=== PATIENT | male | born 1960 | race Caucasian/White ===

== ENCOUNTER 2021-03-13 12:49 | Inpatient (IN) ==
[2021-03-13] MEDS ORDERED: ALBUT/IPRATROP 3MG/0.5MG NEB 3 ML VIAL INH STA (13:39)
[2021-03-13] MEDS ORDERED: dexAMETHasone**PF** 10 MG/ML VIAL IV ONE (13:39)
[2021-03-13] MEDS ORDERED: SODIUM CHLORIDE 0.9% 1000ML 500 ML IV ONE (13:48)
--- NOTE | 2021-03-13 13:48 | Emergency Department Note ---
Impression & Plan Hypoxia, Pneumonia, COVID-19, SOB (shortness of breath) ED Provider Note NAME: SHON VALERA AGE: 60 SEX: M : 1960 ARRIVES VIA: Walk-In INFORMANT: [Patient] ED PROVIDER(S): [Surjit Navarro MD] CHIEF COMPLAINT: Shortness of breath HISTORY OF PRESENT ILLNESS: The patient is a 60-year-old male who is a Covid positive. He was diagnosed with Covid last week. He has had symptoms for about 10 days. The patient had a syncopal event last week and suffered a nonoperable C3 fracture. He is still in a [place] J collar. The patient states that for the last 3, maybe 4 days, he has been more short of breath, he is short of breath with exertion and lying flat. He has felt more weak and more tired. No chest pain, no vomiting. He does have COPD so he uses an inhaler from time to time. He tried it this morning but it did not really help. Upon my arrival in the room, the patient is on facemask O2 as his oxygen value was low in triage. REVIEW OF SYSTEMS: See HPI for pertinent positives and negatives. A total of ten systems were reviewed and were otherwise negative. PMHx/PSHx: See Below SOCIAL HISTORY: See Below. PHYSICAL EXAM: GENERAL: Patient is in no acute distress. HEENT: The patient has a small laceration which appears to be healing to the lateral aspect of the right eyebrow. There is contusion about the right eye. Mucous membranes moist. NECK: No stridor, [place] J collar in place. LUNGS: Clear to auscultation bilaterally when listening anteriorly, no wheeze, no rhonchi, breath sounds equal. Increased respiratory rate. HEART: Without murmurs gallops or rubs, regular rate and rhythm. ABDOMEN: Soft, nontender, bowel sounds positive, no hernias, no peritonitis. EXTREMITIES: No cyanosis or edema, full range of motion of all the joints without pain or difficulty, no signs for acute trauma. NEUROLOGIC: Oriented x 3, no acute motor or sensory deficits, no focal weakness. SKIN: No rash, no jaundice, no diaphoresis. DIFFERENTIAL DIAGNOSIS: Reactive airway disease, pneumonia, pneumothorax, COVID-19, dehydration, COPD, CHF, infection, cardiac ischemia, pulmonary embolism, bronchitis, musculoskelet al, gastrointestinal, as well as other pathologies. EMERGENCY DEPARTMENT COURSE/PROCEDURES: ECG: Indication was shortness of breath. The ECG shows a sinus rhythm with a PVC. The rate is 96. There is no ST elevation. The QTc is 437. Continuous Cardiac Monitoring: An order was placed for continuous cardiac monitoring. The monitor shows a rate of 100 with normal sinus rhythm. Critical Care Note: I have personally spent 43 minutes of critical care time in the direct management of this patient. This includes bedside care, interpretation of diagnostic studies, and testing, discussion with consultants, patient, and family members, and other required patient management activities. This 43 minutes is in excess of all separately billable procedures. MEDICAL DECISION MAKING: There is no leukocytosis or concerning anemia. There is a normal platelet count. No worrisome coagulopathy. Renal panel testing did not show renal failure. Sodium slightly low. Lactic acid level was not elevated making severe sepsis less likely. There were a few liver enzyme elevations however, the bilirubin was normal. ECG shows a sinus rhythm, no ischemic change. Cardiac enzyme testing x1 is not consistent with acute cardiac injury. Covid testing returned positive. Chest film shows a bilateral pneumonia likely a viral pneumonia. No pneumothorax. The patient presented hypoxic. He is Covid positive and has Covid pneumonia. He required O2 supplementation here to keep his oxygen saturation around 90%. The patient was given a 500 cc saline bolus. He was given IV Decadron and a DuoNeb. The patient is in need of a hospital stay. His Covid symptoms have worsened and he is now hypoxic. I did speak with the patient and onsite case manager. The on-call hospitalist was consulted. Past Med/Surg History Medical History Arthritis CAD (coronary artery disease) 2017-NSTEMI s/p IVONNE to distal left circumflex Diverticular disease GERD (gastroesophageal reflux disease) HTN (hypertension) Hyperlipidemia Morbid obesity with BMI of 40.0-44.9, adult NSTEMI (non-ST elevated myocardial infarction) 01/2017--follows with Dr. Lai--reason for Brilinta Pyloric stenosis Spinal stenosis Surgical History History of appendectomy History of cardiac cath 01/2017 @ [facility] with 1 stent placed History of carpal tunnel surgery of right wrist History of colonoscopy with polypectomy History of heart artery stent 01/2017 1 placed History of tonsillectomy History of wisdom tooth extraction Family History Other Heart disease No family history of adverse response to anesthesia Social History Smoking Status: Former smoker Tobacco Type: Cigarettes Cigarettes Per Day: 3-4 a day; Second Hand Exposure: No; Do You Dip or Chew Tobacco: No; Tobacco Cessation Education Requested by Patient: No Hx Alcohol Use: Yes Alcohol type: beer Hx Substance Use: No Preferred Language: Bulgarian Communication Ability: Effective [place] Required: No Beliefs That Will Affect Care: None Current Living Situation: Family Current Living Situation Comment: Lives with daughter Other Information That Helps Us Care for You: No Feels Safe at Home: Yes Safety Concerns: Feels Safe At This Time Assistive Devices: Glasses Allergies Allergies Allergy/AdvReac Type Severity Reaction Status Date / Time No Known Allergies Allergy Verified 03/13/21 14:27 Home Meds Home Medications Medication Instructions Recorded Confirmed omeprazole 20 mg capsule,delayed 20 mg PO QAM 01/30/18 03/13/21 release atorvastatin 40 mg tablet 40 mg PO QAM tab 12/14/18 03/13/21 ticagrelor 90 mg tablet (Brilinta) 90 mg PO BID 03/09/21 03/13/21 aspirin 81 mg chewable tablet 81 mg PO QAM 03/13/21 03/13/21 diclofenac sodium 75 mg 75 mg PO BID 03/13/21 03/13/21 tablet,delayed release Previous Rx's Medication Instructions Recorded acetaminophen 500 mg tablet 1,000 mg PO Q6H PRN #60 tab MDD 6 02/01/18 (Tylenol Extra Strength) pills a day nitroglycerin 0.4 mg sublingual 0.4 mg SUBLINGUAL Q5M #25 tab 02/01/18 tablet (Nitrostat) metoprolol tartrate 25 mg tablet 25 mg PO BID #180 tab 02/15/19 Results & Data (ED) Vital Signs Vital Signs - 24 hr 03/13/21 13:05 03/13/21 13:30 03/13/21 13:31 Temperature 36.4 C L Temperature Source Temporal Artery Scan Pulse Rate 99 H 100 H Pulse Rate [Apical] 95 H Pulse Rate from SpO2 Sensor 99 H Pulse Rhythm [Apical] Regular Respiratory Rate 20 22 34 H Respiratory Effort / Characteristics Non-Labored Spontaneous Non-Labored Respiratory Depth Normal Normal Respiratory Pattern Regular Regular Blood Pressure 98/60 L Blood Pressure [Right Arm] 112/73 Blood Pressure Mean 72 Blood Pressure Mean [Right Arm] 86 Blood Pressure Position Sitting Pulse Oximetry 92 92 89 L Oxygen Delivery Method Room Air Oxymask Oxygen Flow Rate 10 Sepsis Recent Fever Within 48 Hours No Sepsis New/Unexplained Change in Mental Status No Sepsis Action Taken by Nursing No Action Required 03/13/21 13:40 03/13/21 13:56 03/13/21 14:00 Temperature Temperature Source Pulse Rate 93 H Pulse Rate [Apical] Pulse Rate from SpO2 Sensor Pulse Rhythm [Apical] Respiratory Rate 19 24 Respiratory Effort / Characteristics Non-Labored Spontaneous Respiratory Depth Respiratory Pattern Blood Pressure Blood Pressure [Right Arm] Blood Pressure Mean Blood Pressure Mean [Right Arm] Blood Pressure Position Pulse Oximetry 93 92 Oxygen Delivery Method Oxymask Oxymask Oxygen Flow Rate 10 9 Sepsis Recent Fever Within 48 Hours Sepsis New/Unexplained Change in Mental Status Sepsis Action Taken by Nursing 03/13/21 14:30 03/13/21 15:00 03/13/21 15:30 Temperature Temperature Source Pulse Rate 88 90 Pulse Rate [Apical] Pulse Rate from SpO2 Sensor 89 90 82 Pulse Rhythm [Apical] Respiratory Rate 25 H 25 H 26 H Respiratory Effort / Characteristics Respiratory Depth Respiratory Pattern Blood Pressure 114/54 L 127/61 Blood Pressure [Right Arm] Blood Pressure Mean 74 83 Blood Pressure Mean [Right Arm] Blood Pressure Position Pulse Oximetry 97 88 L 89 L Oxygen Delivery Method Nasal Cannula Nasal Cannula Oxygen Flow Rate 5 5 Sepsis Recent Fever Within 48 Hours Sepsis New/Unexplained Change in Mental Status Sepsis Action Taken by [facility] Medications Current Medication List: was personally reviewed by me Laboratory Data Attestation: I reviewed the patient's lab results. Result diagrams: 03/13/21 13:00 03/13/21 13:00 Lab Results 03/13/21 03/13/21 03/13/21 Range/Units 13:00 13:00 13:00 WBC 6.53 (4.8-10.8) K/uL RBC 4.99 (4.7-6.1) M/uL Hgb 15.0 (14.0-18.0) g/dL Hct 42.6 (42-52) % MCV 85.4 (80-100) fL MCH 30.1 (25-34) pg MCHC 35.2 (32-36) g/dL RDW Std Deviation 45.1 (36.4-46.3) fL RDW Coeff of Sheron 14.4 (11.5-14.5) % Plt Count 137 (130-400) K/uL MPV 10.4 (7.4-10.4) fL Immature Gran % (Auto) 0.2 % Neut % (Auto) 80.8 % Lymph % (Auto) 10.0 % [place] % (Auto) 8.7 % Eos % (Auto) 0.0 % Baso % (Auto) 0.3 % Neut # (Auto) 5.28 (1.4-6.5) K/uL Lymph # (Auto) 0.65 L (1.2-3.4) K/uL [place] # (Auto) 0.57 (0.11-0.59) K/uL Eos # (Auto) 0.00 (0-0.5) K/uL Baso # (Auto) 0.02 (0-0.2) K/uL Immature Gran # (Auto) 0.01 (0.00-0.02) K/uL PT 10.2 (9.0-12.0) Seconds INR 1.0 (0.9-1.1) APTT 32.2 H (21.0-31.0) Seconds PTT Ratio 1.2 Sodium 133 L (136-145) mmol/L Potassium 3.7 (3.5-5.1) mmol/L Chloride 102 (98-107) mmol/L Carbon Dioxide 21 (21-32) mmol/L Anion Gap 10.0 (3-11) BUN 15 (7-18) mg/dl Creatinine 0.99 (0.6-1.4) mg/dl Est Cr Clr Drug Dosing 94.6 ml/min Est GFR ( Amer) 95.5 ml/min Est GFR (Non-Af Amer) 82.4 ml/min BUN/Creatinine Ratio 15.0 (10-20) Glucose 107 H (70-99) mg/dl Lactate (0.4-2.0) mmol/L Calcium 8.7 (8.5-10.1) mg/dl Magnesium 2.4 (1.8-2.4) mg/dl Total Bilirubin 0.5 (0.2-1) mg/dl AST 117 H (15-37) U/L ALT 53 (12-78) U/L Alkaline Phosphatase 126 H (45-117) U/L Troponin I < 0.015 (0-0.045) ng/ml C-Reactive Protein 11.60 H (0-0.29) mg/dl Total Protein 7.8 (6.4-8.2) gm/dl Albumin 2.8 L (3.4-5.0) gm/dl Globulin 5.0 H (2.5-4.0) gm/dl Albumin/Globulin Ratio 0.6 L (0.9-2) Procalcitonin (0-0.5) ng/ml COVID-19 Eval Order SARS-CoV-2 (PCR) (Negative) 03/13/21 03/13/21 03/13/21 Range/Units 13:00 13:00 13:00 WBC (4.8-10.8) K/uL RBC (4.7-6.1) M/uL Hgb (14.0-18.0) g/dL Hct (42-52) % MCV (80-100) fL MCH (25-34) pg MCHC (32-36) g/dL RDW Std Deviation (36.4-46.3) fL RDW Coeff of Sheron (11.5-14.5) % Plt Count (130-400) K/uL MPV (7.4-10.4) fL Immature Gran % (Auto) % Neut % (Auto) % Lymph % (Auto) % [place] % (Auto) % Eos % (Auto) % Baso % (Auto) % Neut # (Auto) (1.4-6.5) K/uL Lymph # (Auto) (1.2-3.4) K/uL [place] # (Auto) (0.11-0.59) K/uL Eos # (Auto) (0-0.5) K/uL Baso # (Auto) (0-0.2) K/uL Immature Gran # (Auto) (0.00-0.02) K/uL PT (9.0-12.0) Seconds INR (0.9-1.1) APTT (21.0-31.0) Seconds PTT Ratio Sodium (136-145) mmol/L Potassium (3.5-5.1) mmol/L Chloride (98-107) mmol/L Carbon Dioxide (21-32) mmol/L Anion Gap (3-11) BUN (7-18) mg/dl Creatinine (0.6-1.4) mg/dl Est Cr Clr Drug Dosing ml/min Est GFR ( Amer) ml/min Est GFR (Non-Af Amer) ml/min BUN/Creatinine Ratio (10-20) Glucose (70-99) mg/dl Lactate 1.5 (0.4-2.0) mmol/L Calcium (8.5-10.1) mg/dl Magnesium (1.8-2.4) mg/dl Total Bilirubin (0.2-1) mg/dl AST (15-37) U/L ALT (12-78) U/L Alkaline Phosphatase (45-117) U/L Troponin I (0-0.045) ng/ml C-Reactive Protein Cancelled (0-0.29) mg/dl Total Protein (6.4-8.2) gm/dl Albumin (3.4-5.0) gm/dl Globulin (2.5-4.0) gm/dl Albumin/Globulin Ratio (0.9-2) Procalcitonin < 0.05 (0-0.5) ng/ml COVID-19 Eval Order SARS-CoV-2 (PCR) (Negative) 03/13/21 03/13/21 Range/Units 14:15 14:15 WBC (4.8-10.8) K/uL RBC (4.7-6.1) M/uL Hgb (14.0-18.0) g/dL Hct (42-52) % MCV (80-100) fL MCH (25-34) pg MCHC (32-36) g/dL RDW Std Deviation (36.4-46.3) fL RDW Coeff of Sheron (11.5-14.5) % Plt Count (130-400) K/uL MPV (7.4-10.4) fL Immature Gran % (Auto) % Neut % (Auto) % Lymph % (Auto) % [place] % (Auto) % Eos % (Auto) % Baso % (Auto) % Neut # (Auto) (1.4-6.5) K/uL Lymph # (Auto) (1.2-3.4) K/uL [place] # (Auto) (0.11-0.59) K/uL Eos # (Auto) (0-0.5) K/uL Baso # (Auto) (0-0.2) K/uL Immature Gran # (Auto) (0.00-0.02) K/uL PT (9.0-12.0) Seconds INR (0.9-1.1) APTT (21.0-31.0) Seconds PTT Ratio Sodium (136-145) mmol/L Potassium (3.5-5.1) mmol/L Chloride (98-107) mmol/L Carbon Dioxide (21-32) mmol/L Anion Gap (3-11) BUN (7-18) mg/dl Creatinine (0.6-1.4) mg/dl Est Cr Clr Drug Dosing ml/min Est GFR ( Amer) ml/min Est GFR (Non-Af Amer) ml/min BUN/Creatinine Ratio (10-20) Glucose (70-99) mg/dl Lactate (0.4-2.0) mmol/L Calcium (8.5-10.1) mg/dl Magnesium (1.8-2.4) mg/dl Total Bilirubin (0.2-1) mg/dl AST (15-37) U/L ALT (12-78) U/L Alkaline Phosphatase (45-117) U/L Troponin I (0-0.045) ng/ml C-Reactive Protein (0-0.29) mg/dl Total Protein (6.4-8.2) gm/dl Albumin (3.4-5.0) gm/dl Globulin (2.5-4.0) gm/dl Albumin/Globulin Ratio (0.9-2) Procalcitonin (0-0.5) ng/ml COVID-19 Eval Order Covid19 at [facility] SARS-CoV-2 (PCR) POSITIVE A* (Negative) Administered Medications Enoxaparin Sodium (Enoxaparin Inj 40 Mg/0.4 Ml Syr) 40 mg SQ Q24H LETICIA Stop: 04/12/21 17:59 Last Admin: 03/13/21 18:03 Dose: 40 mg Documented by: [id number] Discontinued Medications Albuterol (Albut/Ipratrop 3mg/0.5mg Neb 3 Ml Vial) 3 ml INH NOW STA Stop: 03/13/21 13:40 Last Admin: 03/13/21 13:56 Dose: 3 ml Documented by: [id number] Dexamethasone Sodium Phosphate (DexamethasonePf 10 Mg/Ml Vial) 6 mg IV NOW ONE Stop: 03/13/21 13:40 Last Admin: 03/13/21 14:10 Dose: 6 mg Documented by: [id number] Sodium Chloride (Nss 1000ml) 500 mls @ 999 mls/hr IV .Q31M ONE Stop: 03/13/21 14:18 Last Infusion: 03/13/21 15:39 Dose: 999 mls/hr Documented by: [id number] Admin: 03/13/21 14:10 Dose: 999 mls/hr Documented by: [id number] Imaging Data Radiologist's Impression: Chest X-Ray 03/13/21 13:40 XR chest 1V portable CLINICAL HISTORY: Shortness of breath. COMPARISON STUDY: Chest radiograph March 09, 2021. FINDINGS: No pneumothorax or pleural effusion is noted. There is mild enla rgement of the cardiac silhouette. Bilateral opacities have developed. Interstitial thickening has progressed. IMPRESSION: Interval development of bilateral opacities and progression of interstitial thickening consistent suggestive of viral pneumonia. Pulmonary edema could appear similar although is considered less likely. ACT 112: Negative or not required by law. Electronically signed by: Dinesh Obrien M.D. 03/13/2021 3:01 PM Discharge Plan Visit Data Chief Complaint: Shortness of Breath/Dyspnea Stated Complaint: SOB, COVID+, NECK PAIN ED Provider: Surjit Navarro Discharge Problem: Hypoxia, Pneumonia, COVID-19, SOB (shortness of breath) Patient Disposition: Admitted As Inpatient Condition: Fair Discharge Instructions Interventions: ED Discharge Assessment Last Done: 03/13/21 16:26
[2021-03-13 14:10] LABS: Basophils # (auto) 0.02 K/uL (0-0.2); Basophils % (auto) 0.3 %; Hematocrit (blood only) 42.6 % (42-52); Immature Granulocytes # (auto) 0.01 K/uL (0.00-0.02); Immature Granulocytes % (auto) 0.2 %; Lymphocytes # (auto) 0.65 K/uL (1.2-3.4); Mean Corpuscular Hemoglobin 30.1 pg (25-34); Mean Corpuscular Hgb Conc 35.2 g/dL (32-36); Mean Corpuscular Volume 85.4 fL (80-100); Mean Platelet Volume 10.4 fL (7.4-10.4); Monocytes # (auto) 0.57 K/uL (0.11-0.59); Monocytes % (auto) 8.7 %; Neutrophils # (auto) 5.28 K/uL (1.4-6.5); Neutrophils % (auto) 80.8 %; Platelet Count 137 K/uL (130-400); RDW Coefficient of Variation 14.4 % (11.5-14.5); RDW Standard Deviation 45.1 fL (36.4-46.3); Red Blood Count 4.99 M/uL (4.7-6.1); White Blood Count 6.53 K/uL (4.8-10.8)
[2021-03-13 14:21] LABS: Partial Thromboplastin Ratio 1.2; Partial Thromboplastin Time 32.2 Seconds (21.0-31.0); Prothrombin Time 10.2 Seconds (9.0-12.0)
[2021-03-13 14:32] LABS: Alanine Aminotransferase 53 U/L (12-78); Albumin Globulin Ratio 0.6 (0.9-2); Albumin Level 2.8 gm/dl (3.4-5.0); Aspartate Aminotransferase 117 U/L (15-37); Bilirubin,Total 0.5 mg/dl (0.2-1); Blood Urea Nitrogen 15 mg/dl (7-18); Calcium 8.7 mg/dl (8.5-10.1); Carbon Dioxide 21 mmol/L (21-32); Chloride 102 mmol/L (98-107); Creatinine Clr Calc Pharmacy 94.6 ml/min; Est GFR (African American) 95.5 ml/min; Est GFR (Non-African American) 82.4 ml/min; Glucose 107 mg/dl (70-99); Magnesium 2.4 mg/dl (1.8-2.4); Potassium 3.7 mmol/L (3.5-5.1); Sodium 133 mmol/L (136-145); Total Protein 7.8 gm/dl (6.4-8.2)
[2021-03-13 14:34] LABS: Alkaline Phosphatase 126 U/L (45-117); Troponin I < 0.015 ng/ml (0-0.045)
--- NOTE | 2021-03-13 15:03 | XRay Report ---
XR chest 1V portable CLINICAL HISTORY: Shortness of breath. COMPARISON STUDY: Chest radiograph March 09, 2021. FINDINGS: No pneumothorax or pleural effusion is noted. There is mild enlargement of the cardiac silh ouette. Bilateral opacities have developed. Interstitial thickening has progressed. IMPRESSION: Interval development of bilateral opacities and progression of interstitial thickening c onsistent suggestive of viral pneumonia. Pulmonary edema could appear similar although is considered less likely. ACT 112: Negative or not required by law. Electronically signed by: Dinesh Obrien M.D. 03/13/2021 3:01 PM
[2021-03-13 16:33] LABS: Base Excess ABG -1.3 mEq/L (-9-1.8); HCO3 ABG 21 mmol/L (19-24); Oxygen Saturation ABG 92.2 % (90-95); PCO2 ABG 31 mmHg (35-46); PO2 ABG 58 mmHg (80-95); pH ABG 7.46 (7.35-7.45)
[2021-03-13 16:53] LABS: Allen Test Pos (Pos)
[2021-03-13] MEDS ORDERED: ALBUT/IPRATROP 3MG/0.5MG NEB 3 ML VIAL NEB PRN (17:06)
[2021-03-13] MEDS ORDERED: ACETAMINOPHEN 325 MG TAB PO PRN (17:06)
[2021-03-13] MEDS: ENOXAPARIN INJ 40 MG/0.4 ML SYR SQ SCH (18:03)
--- NOTE | 2021-03-13 18:54 | History & Physical Report ---
Date of Service March 13, 2021 Assessment & Plan (1) Acute respiratory failure with hypoxia: (2) Pneumonia due to COVID-19 virus: Plan: -Admit to telemetry -Patient presenting from home with reports of worsening shortness of breath and hypoxia. Reportedly tested positive for COVID-19 at an outside facility 1 week ago, symptoms present for the past 10 days. -Seen in the ED on 03/09 after a syncopal event and diagnosed with a C3 cervical fracture which will be discussed below -In the ED, requiring 6 L of oxygen via nasal cannula to maintain saturations -> upon arrival to the floor, patient now requiring 11 L via oxygen mask -S/p IV dexamethasone 6 mg in the ED, continue with dexamethasone 6 mg IV daily -Not a candidate for remdesivir due to length of illness. Low threshold for starting tocilizumab if oxygen requirements worsen. -Procalcitonin negative, CRP 11 -CTA chest for PE -Low threshold for pulmonary consult (3) C3 cervical fracture: Plan: -With Denver J collar currently in place -Spine Ortho consult (4) CAD (coronary artery disease): Plan: -Appears stable, no reports of chest pain -Continue ASA, Brilinta, beta-ruby, statin (5) DVT prophylaxis: Plan: -SQ Lovenox Admission and Anticipated Discharge Date Admission Date: March 13, 2021 History of Present Illness Chief Complaint: Shortness of breath Primary Care Provider: Morgan Rubin PA-C 60-year-old male with PMH CAD s/p NSTEMI with IVONNE to distal left circumflex 2017, HTN, history of tobacco use, and other problems listed below who presents to the ED with reports of worsening shortness of breath. Patient diagnosed with COVID-19 at an outside facility approximately 1 week ago. Patient reports developing shortness of breath and cough about 10 days ago. Patient was seen at [facility] ED on 03/09 after syncopal event. Patient was diagnosed with an acute minimally distracted avulsion fracture of the anterior inferior C3 vertebral body, favoring a teardrop fracture. Nonoperative management with Denver J collar and outpatient follow-up with spine Ortho was recommended. Patient reports worsening shortness of breath over the past few days. He has a pulse oximeter at home and reported his oxygen to be 72% on room air. Patient presented to the ED for further evaluation. He reports cough is minimally productive for green sputum. Reports running some low-grade fevers. Appetite remains good, denies abdominal pain, nausea, vomiting, diarrhea. No further episodes of lightheadedness, dizziness, syncope. He denies chest pain. No urinary symptoms. In the ED, patient was requiring 6 L of oxygen via nasal cannula to maintain saturations. CXR shows bilateral opacities suggestive of viral pneumonia. Patient was given nebulizer treatment, IV dexamethasone 6 mg, IVF. Allergies Allergy/AdvReac Type Severity Reaction Status Date / Time No Known Allergies Allergy Verified 03/13/21 14:27 Home Medications Medication Instructions Recorded Confirmed Type omeprazole 20 mg capsule,delayed 20 mg PO QAM 01/30/18 03/13/21 History release acetaminophen 500 mg tablet 1,000 mg PO Q6H PRN #60 tab MDD 6 02/01/18 03/13/21 Rx (Tylenol Extra Strength) pills a day nitroglycerin 0.4 mg sublingual 0.4 mg SUBLINGUAL Q5M #25 tab 02/01/18 03/13/21 Rx tablet (Nitrostat) atorvastatin 40 mg tablet 40 mg PO QAM tab 12/14/18 03/13/21 History metoprolol tartrate 25 mg tablet 25 mg PO BID #180 tab 02/15/19 03/13/21 Rx ticagrelor 90 mg tablet (Brilinta) 90 mg PO BID 03/09/21 03/13/21 History aspirin 81 mg chewable tablet 81 mg PO QAM 03/13/21 03/13/21 History diclofenac sodium 75 mg 75 mg PO BID 03/13/21 03/13/21 History tablet,delayed release Past Med/Surg History Medical History Arthritis CAD (coronary artery disease) 2016-NSTEMI s/p IVONNE to distal left circumflex Diverticular disease GERD (gastroesophageal reflux disease) HTN (hypertension) Hyperlipidemia Morbid obesity with BMI of 40.0-44.9, adult NSTEMI (non-ST elevated myocardial infarction) 01/2017--follows with Dr. Lai--reason for Brilinta Pyloric stenosis Spinal stenosis Surgical History History of appendectomy History of cardiac cath 01/2017 @ [facility] with 1 stent placed History of carpal tunnel surgery of right wrist History of colonoscopy with polypectomy History of heart artery stent 01/2017 1 placed History of tonsillectomy History of wisdom tooth extraction Family History Other Heart disease No family history of adverse response to anesthesia Social History Smoking Status: Former smoker Tobacco Type: Cigarettes Cigarettes Per Day: 3-4 a day; Second Hand Exposure: No; Do You Dip or Chew Tobacco: No; Tobacco Cessation Education Requested by Patient: No Hx Alcohol Use: Yes Alcohol type: beer Hx Substance Use: No Preferred Language: Austrian Communication Ability: Effective Linen Supervisor Required: No Beliefs That Will Affect Care: None Current Living Situation: Family Current Living Situation Comment: Lives with daughter Other Information That Helps Us Care for You: No Feels Safe at Home: Yes Safety Concerns: Feels Safe At This Time Assistive Devices: Glasses Review of Systems Review of Systems: ROS per HPI, all other systems reviewed and negative Physical Exam Constitutional: WD/WN, vitals as above Eyes: PERRL, conjunctivae normal, anicteric sclerae Right periorbital ecchymosis with small abrasion ENMT: external ear and nose normal, oropharynx normal Neck: Denver J collar in place Respiratory: normal respiratory effort; no respiratory distress Auscultation: + diminished lung sounds Cardiovascular: Rate/Rhythm: regular rate and regular rhythm Vessels: normal peripheral pulses Extremities: no edema Gastrointestinal (Abdomen): normal bowel sounds, soft, nontender, no hepatosplenomegaly Musculoskeletal: no cyanosis or clubbing, extremities motor strength 5/5 Skin: no rashes, warm and dry Neurologic: PERRL, EOMI, accommodation nl, no face palsy, no dysarthria Psychiatric: A+Ox3, euthymic affect Results & Data Results & Data ([facility]) Vital Signs (Past 12 Hours) Vital Signs Temp Pulse Pulse Resp BP BP Pulse Ox 03/13/21 18:14 03/13/21 17:11 37.1 C 76 24 92 03/13/21 17:06 03/13/21 16:29 37.1 C 85 22 113/65 91 03/13/21 15:30 26 H 89 L 03/13/21 15:00 90 25 H 127/61 88 L 03/13/21 14:30 88 25 H 114/54 L 97 03/13/21 14:00 93 H 24 03/13/21 13:56 19 92 03/13/21 13:40 93 03/13/21 13:31 100 H 34 H 89 L 03/13/21 13:30 95 H 22 112/73 92 03/13/21 13:05 36.4 C L 99 H 20 98/60 L 92 Pulse Ox 03/13/21 18:14 91 03/13/21 17:11 03/13/21 17:06 91 03/13/21 16:29 03/13/21 15:30 03/13/21 15:00 03/13/21 14:30 03/13/21 14:00 03/13/21 13:56 03/13/21 13:40 03/13/21 13:31 03/13/21 13:30 03/13/21 13:05 Laboratory Results Short CBC 03/13/21 Range/Units 13:00 WBC 6.53 (4.8-10.8) K/uL Hgb 15.0 (14.0-18.0) g/dL Hct 42.6 (42-52) % Plt Count 137 (130-400) K/uL BMP 03/13/21 13:00 Sodium 133 L Potassium 3.7 Chloride 102 Carbon Dioxide 21 BUN 15 Creatinine 0.99 Glucose 107 H Calcium 8.7 Cardiac Enzymes 03/13/21 Range/Units 13:00 Troponin I < 0.015 (0-0.045) ng/ml Liver Function 03/13/21 Range/Units 13:00 Total Bilirubin 0.5 (0.2-1) mg/dl AST 117 H (15-37) U/L ALT 53 (12-78) U/L Alkaline Phosphatase 126 H (45-117) U/L Albumin 2.8 L (3.4-5.0) gm/dl Diagnostic Findings Chest X-Ray 03/13/21 13:40 XR chest 1V portable CLINICAL HISTORY: Shortness of breath. COMPARISON STUDY: Chest radiograph March 09, 2021. FINDINGS: No pneumothorax or pleural effusion is noted. There is mild enlargement of the cardiac silhouette. Bilateral opacities have developed. Interstitial thickening has progressed. IMPRESSION: Interval development of bilateral opacities and progression of interstitial thickening consistent suggestive of viral pneumonia. Pulmonary edema could appear similar although is considered less likely. ACT 112: Negative or not required by law. Electronically signed by: Dinesh Obrien M.D. 03/13/2021 3:01 PM Code Status & VTE Plan Code Status Patient is a full code as per my discussion with him. VTE Prophylaxis Plan VTE Prophylaxis will be ordered: Yes Supervising Physician Co-Signing Physician Notes History and physical exam performed by me as detailed by Tori TYSON, notable 60-year-old man with CAD status post drug-eluting stent to left circumflex, hypertension, tobacco use who presented with worsening shortness of breath, recent diagnosis of COVID-19 over a week ago and has been having symptoms about 10 days, initially presented to ER on 03/09 after syncopal episode, was diagnosed with acute minimally distracted avulsion fracture of anterior-inferior C3 vertebral body and was discharged on Denver J collar with outpatient follow-up with spine Ortho recommended. Worsening symptoms and found to be hypoxic today at home to 70s on room air and requiring about 6 L in ER. Chest x-ray showed bilateral opacities Acute hypoxic respiratory failure due to COVID-19 pneumonia. Recent C3 vertebral body fracture. Continue oxygen supplementation to maintain oxygen saturation above 90%. Started on dexamethasone CRP is 11. If oxygenation requirement worsens, get pulmonary to assess for need for tocilizumab Monitor inflammatory markers Awaiting CT PE We will get Ortho spine evaluation of the fracture while inpatient. Continue collar for now Agree with other plans as detailed by Tori TYSON (1) C3 cervical fracture Encounter type: initial encounter Fracture alignment: displaced Fracture morphology: unspecified fracture morphology Fracture type: closed Qualified Code(s): S12.200A - Unspecified displaced fracture of third cervical vertebra, initial encounter for closed fracture
[2021-03-13] MEDS: TICAGRELOR 90 MG TAB PO SCH (20:40)
[2021-03-13] MEDS: METOPROLOL TARTRATE 25 MG TAB PO SCH (20:40)
[2021-03-13] MEDS ORDERED: OPTIRAY 320 125ml IV ONE (21:28)
[2021-03-13] MEDS ORDERED: ALBUT/IPRATROP 3MG/0.5MG NEB 3 ML VIAL NEB STA (23:04)
[2021-03-13] MEDS ORDERED: POTASSIUM CHLORIDE CRTAB 20 MEQ TABCR PO STA (23:06)
[2021-03-13] MEDS ORDERED: methylPREDNISolone 40 MG in SYRINGE 0 ML IV STA (23:07)
[2021-03-13 23:57] LABS: Base Excess ABG -1.4 mEq/L (-9-1.8); HCO3 ABG 21 mmol/L (19-24); Oxygen Saturation ABG 90.7 % (90-95); PCO2 ABG 30 mmHg (35-46); PO2 ABG 54 mmHg (80-95); pH ABG 7.47 (7.35-7.45)
[2021-03-14 00:08] LABS: Allen Test POS (Pos)
[2021-03-14 00:31] LABS: NT Pro B Type Natriuretic Pept 112 pg/ml (0-900)
--- NOTE | 2021-03-14 06:12 | Electrocardiogram Report ---
Test Reason : Blood Pressure : / mmHG Vent. Rate : 096 BPM Atrial Rate : 096 BPM P-R Int : 118 ms QRS Dur : 086 ms QT Int : 346 ms P-R-T Axes : 054 080 045 degrees QTc Int : 437 ms Sinus rhythm with occasional Premature ventricular complexes Otherwise normal ECG When compared with ECG of 09-MAR-2021 15:49, Premature ventricular complexes are now Present Confirmed by Micah Fischer ([id number]) on 03/14/2021 6:11:51 AM Referred By: Confirmed By:Micah Fischer
[2021-03-14] MEDS ORDERED: FUROSEMIDE INJ 20 MG/2 ML VIAL IV ONE (06:38)
[2021-03-14] MEDS ORDERED: ALBUT/IPRATROP 3MG/0.5MG NEB 3 ML VIAL NEB STA (06:39)
[2021-03-14] MEDS: dexAMETHasone 6 MG in SYRINGE 0 ML IV SCH (06:49)
[2021-03-14 07:07] LABS: Hematocrit (blood only) 40.2 % (42-52); Hemoglobin 14.1 g/dL (14.0-18.0); Mean Corpuscular Hemoglobin 30.1 pg (25-34); Mean Corpuscular Hgb Conc 35.1 g/dL (32-36); Mean Corpuscular Volume 85.9 fL (80-100); Mean Platelet Volume 10.3 fL (7.4-10.4); Platelet Count 151 K/uL (130-400); RDW Coefficient of Variation 14.4 % (11.5-14.5); RDW Standard Deviation 45.8 fL (36.4-46.3); Red Blood Count 4.68 M/uL (4.7-6.1); White Blood Count 5.96 K/uL (4.8-10.8)
[2021-03-14 07:10] LABS: Base Excess ABG -1.6 mEq/L (-9-1.8); HCO3 ABG 22 mmol/L (19-24); Oxygen Saturation ABG 98.1 % (90-95); PCO2 ABG 32 mmHg (35-46); PO2 ABG 106 mmHg (80-95); pH ABG 7.44 (7.35-7.45)
[2021-03-14 07:13] LABS: Allen Test Pos (Pos)
--- NOTE | 2021-03-14 07:17 | XRay Report ---
XR chest 1V portable CLINICAL HISTORY: low o2 COMPARISON STUDY: Chest radiograph and chest CT March 13, 2021. FINDINGS: Lung volumes are normal. There is no pneumothorax or pleural effusion. Cardiomediastinal si lhouette is stable. Extensive bilateral airspace opacities persist. IMPRESSION: No significant change in extensive bilateral airspace opacities suggestive of viral pneu monia. ACT 112: Negative or not required by law. Electronically signed by: Dinesh Obrien M.D. 03/14/2021 7:16 AM
[2021-03-14 07:36] LABS: BUN Creatinine Ratio 21.9 (10-20); Calcium 8.5 mg/dl (8.5-10.1); Creatinine Clr Calc Pharmacy 102.2 ml/min; Est GFR (African American) 105.8 ml/min; Est GFR (Non-African American) 91.3 ml/min
--- NOTE | 2021-03-14 07:55 | CT Scan Report ---
CT ANGIOGRAPHY OF THE CHEST, PULMONARY EMBOLUS PROTOCOL CLINICAL HISTORY: Shortness of breath. Covid. Evaluate for pulmonary embolus. COMPARISON STUDY: Chest CT August 01, 2020. Chest radiograph March 13, 2021. TECHNIQUE: Following IV administration of 118 mL of Optiray, helical axial images of the chest were o btained utilizing the pulmonary embolus protocol. Maximal intensity projections and sagittal and cor onal reformats were viewed on an independent 3D workstation. IV contrast was administered without co mplication. Automated exposure control was utilized for the study. A dose lowering technique was ut ilized adhering to the principles of ALARA. CT DOSE: 795.30 mGy.cm FINDINGS: No pulmonary emboli are identified. There is no thoracic aortic dissection. Mild cardiomeg lia is noted. No pericardial effusion. Multiple enlarged mediastinal and bilateral hilar lymph nodes are noted. Index right paratracheal lymph node measures 1.7 cm in short axis diameter. Index subcarin al lymph node measures 2 cm an index right hilar node measures 1.5 cm. No pneumothorax or pleural eff usion is noted. Extensive groundglass opacities throughout the lungs are noted. Multiple areas of con solidation are noted. These are most pronounced within the right lower lobe. Upper lobe predominant e mphysema is present. Lungs are suboptimally assessed due to respiratory motion. IMPRESSION: 1. No pulmonary emboli identified. 2. Extensive airspace opacities throughout the lungs with multifocal consolidation and groundglass op acities. The findings represent viral pneumonia. 3. Mediastinal bilateral and hilar lymphadenopathy which is likely reactive. 4. Emphysema. ACT 112: Negative or not required by law. Electronically signed by: Dinesh Obrien M.D. 03/14/2021 7:54 AM
[2021-03-14 08:45] LABS: Albumin Level 2.5 gm/dl (3.4-5.0); Bilirubin Direct 0.1 mg/dl (0-0.2); Bilirubin,Total 0.4 mg/dl (0.2-1); Total Protein 7.1 gm/dl (6.4-8.2)
[2021-03-14] MEDS ORDERED: dexAMETHasone 6 MG in SYRINGE 0 ML IV SCH (09:00)
[2021-03-14] MEDS: METOPROLOL TARTRATE 25 MG TAB PO SCH ×2 (09:04→20:50)
[2021-03-14] MEDS: TICAGRELOR 90 MG TAB PO SCH ×2 (09:04→20:50)
[2021-03-14] MEDS: ATORVASTATIN 40 MG TAB PO SCH (09:05)
[2021-03-14] MEDS: PANTOprazole 40 MG TAB PO SCH (09:06)
[2021-03-14] MEDS: ASPIRIN 81 MG CHEW PO SCH (09:07)
--- NOTE | 2021-03-14 10:16 | Orthopedic Consultation ---
Date of Consultation March 14, 2021 Assessment & Plan (1) C3 cervical fracture: This time patient does have a known C3 teardrop fracture is nondisplaced. At this point I would recommend to maintain the cervical collar at all times if possible. If he does require intubation I recommend it be done so with the glide scope or fiberoptic so as to maintain cervical alignment. Would request that we maintain the cervical collar in place if he is intubated for additional protection. The fracture pattern does not appear to be unstable however. History of Present Illness Reason for Consultation: Cervical spine fracture Attending Physician: Maris Ferrell MD History of Present Illness This is a 60-year-old male that presents the emergency room yesterday with marked clotting status secondary to Covid infection. He does have known cervical spine fracture at C3. Allergies Allergy/AdvReac Type Severity Reaction Status Date / Time No Known Allergies Allergy Verified 03/13/21 14:27 Home Medications Medication Instructions Recorded Confirmed Type omeprazole 20 mg capsule,delayed 20 mg PO QAM 01/30/18 03/13/21 History release acetaminophen 500 mg tablet 1,000 mg PO Q6H PRN #60 tab MDD 6 02/01/18 03/13/21 Rx (Tylenol Extra Strength) pills a day nitroglycerin 0.4 mg sublingual 0.4 mg SUBLINGUAL Q5M #25 tab 02/01/18 03/13/21 Rx tablet (Nitrostat) atorvastatin 40 mg tablet 40 mg PO QAM tab 12/14/18 03/13/21 History metoprolol tartrate 25 mg tablet 25 mg PO BID #180 tab 02/15/19 03/13/21 Rx ticagrelor 90 mg tablet (Brilinta) 90 mg PO BID 03/09/21 03/13/21 History aspirin 81 mg chewable tablet 81 mg PO QAM 03/13/21 03/13/21 History diclofenac sodium 75 mg 75 mg PO BID 03/13/21 03/13/21 History tablet,delayed release Patient History Medical History Arthritis CAD (coronary artery disease) 2016-NSTEMI s/p IVONNE to distal left circumflex Diverticular disease GERD (gastroesophageal reflux disease) HTN (hypertension) Hyperlipidemia Morbid obesity with BMI of 40.0-44.9, adult NSTEMI (non-ST elevated myocardial infarction) 01/2017--follows with Dr. Lai--reason for Brilinta Pyloric stenosis Spinal stenosis Surgical History History of appendectomy History of cardiac cath 01/2017 @ [facility] with 1 stent placed History of carpal tunnel surgery of right wrist History of colonoscopy with polypectomy History of heart artery stent 01/2017 1 placed History of tonsillectomy History of wisdom tooth extraction Family History Other Heart disease No family history of adverse response to anesthesia Social History Smoking Status: Former smoker Tobacco Type: Cigarettes Cigarettes Per Day: 3-4 a day; Second Hand Exposure: No; Do You Dip or Chew Tobacco: No; Tobacco Cessation Education Requested by Patient: No Hx Alcohol Use: Yes Alcohol type: beer Hx Substance Use: No Preferred Language: Maltese Communication Ability: Effective Package Liner Required: No Beliefs That Will Affect Care: None Current Living Situation: Family Current Living Situation Comment: Lives with daughter Other Information That Helps Us Care for You: No Feels Safe at Home: Yes Safety Concerns: Feels Safe At This Time Assistive Devices: Glasses Results & Data ([facility]) Vital Signs (Past 12 Hours) Vital Signs Temp Pulse Pulse Resp BP Pulse Ox 03/14/21 07:41 36.7 C 60 22 98/41 L 91 03/14/21 07:11 62 22 92 03/14/21 05:54 61 03/14/21 04:44 36.8 C 57 L 22 112/46 L 93 03/14/21 03:25 60 24 92 03/13/21 23:54 62 24 93 03/13/21 23:09 36.8 C 61 22 127/69 90 (1) C3 cervical fracture Encounter type: initial encounter Fracture alignment: displaced Fracture morphology: unspecified fracture morphology Fracture type: closed Qualified Code(s): S12.200A - Unspecified displaced fracture of third cervical vertebra, initial encounter for closed fracture
--- NOTE | 2021-03-14 11:16 | Hospitalist Progress Note ---
Date of Service March 14, 2021 Assessment & Plan (1) Acute respiratory failure with hypoxia: (2) Pneumonia due to COVID-19 virus: Plan: Continue oxygen supplementation. Continue incentive spirometry and flutter Continue dexamethasone Tough to self prone due to cervical collar Continue supportive care Discussed with pulmonology who may consider Tocilizumab versus Baricitinib. However, LFT elevated. Monitor (3) C3 cervical fracture: Plan: Patient had a syncopal episode and was seen in the ER on 03/09/2021. Was found to have a cervical fracture and was planned to follow-up with Ortho outpatient. Has a cervical collar currently in place Spine Ortho consult appreciated. Continue to maintain cervical collar at all times. Dr. Ferguson's recommendation. If patient requires intubation will need to be done with the glide scope or fiberoptic maintain cervical alignment and to maintain cervical collar if intubated (4) CAD (coronary artery disease): Plan: Appears stable, no reports of chest pain Continue ASA, Brilinta, beta-ruby, statin (5) DVT prophylaxis: Plan: SQ Lovenox Admission and Anticipated Discharge Date Admission Date: March 13, 2021 Subjective 60-year-old man with history of CAD status post drug-eluting stent to distal left circumflex in 2017, hypertension, tobacco use, recent diagnosis of Covid at an outside facility about a week ago, syncopal events presenting to our ER on 102 and found to have acute minimally distracted avulsion fracture of the anterior-inferior C3 vertebra and was placed on trach collar and plan to follow- up outpatient with spine Ortho who presented with worsening shortness of breath and cough for about 10 days. Being managed for acute hypoxic respiratory failure due to COVID-19 pneumonia. Patient seen and examined this morning. Patient appears to be in good spirits. His oxygen requirement did worsen since admission from 6 L/min yesterday evening to high flow nasal cannula for support with oxygen saturations in the low 90s. He does report cough, dyspnea on exertion. Denies any anorexia, nausea, vomiting, diarrhea. Denies any neck pain Review of Systems Constitutional: no fatigue and no anorexia Respiratory: + cough and + dyspnea on exertion Cardiovascular: + dyspnea on exertion; no chest pain, no palpitations, no lightheadedness and no edema Gastrointestinal: no abdominal pain, no nausea, no vomiting and no diarrhea/loose stools Genitourinary: no dysuria, no difficulty urinating or no urinary frequency Musculoskeletal: No neck pain Neurologic: no paresthesia, no dizziness and no headache(s) Psychiatric: no depression and no anxiety Physical Exam Constitutional: + well hydrated and + obese; no acute distress Eyes: PERRL, conjunctivae normal, anicteric sclerae ENMT: external ear and nose normal, oropharynx normal Neck: Neck collar in place Respiratory: On high flow nasal cannula, not in respiratory distress, diminished breath sounds bilaterally Cardiovascular: RRR, S1-S2 Gastrointestinal (Abdomen): normal bowel sounds, soft, nontender, no hepatosplenomegaly Musculoskeletal: No pedal edema Neurologic: PERRL, EOMI, accommodation nl, no face palsy, no dysarthria Psychiatric: A+Ox3, euthymic affect Results & Data Results & Data ([facility]) Vital Signs (Past 12 Hours) Vital Signs Temp Pulse Pulse Resp BP Pulse Ox 03/14/21 10:45 65 22 95 03/14/21 08:00 63 03/14/21 07:41 36.7 C 60 22 98/41 L 91 03/14/21 07:11 62 22 92 03/14/21 05:54 61 03/14/21 04:44 36.8 C 57 L 22 112/46 L 93 03/14/21 03:25 60 24 92 03/13/21 23:54 62 24 93 Laboratory Results Abnormal lab results 03/13/21 03/13/21 03/13/21 Range/Units 13:00 13:00 13:00 RBC (4.7-6.1) M/uL Hct (42-52) % Lymph # (Auto) 0.65 L (1.2-3.4) K/uL APTT 32.2 H (21.0-31.0) Seconds ABG pH (7.35-7.45) ABG pCO2 (35-46) mmHg ABG pO2 (80-95) mmHg ABG O2 Saturation (90-95) % Sodium 133 L (136-145) mmol/L BUN (7-18) mg/dl BUN/Creatinine Ratio (10-20) Glucose 107 H (70-99) mg/dl AST 117 H (15-37) U/L Alkaline Phosphatase 126 H (45-117) U/L C-Reactive Protein 11.60 H (0-0.29) mg/dl Albumin 2.8 L (3.4-5.0) gm/dl Globulin 5.0 H (2.5-4.0) gm/dl Albumin/Globulin Ratio 0.6 L (0.9-2) SARS-CoV-2 (PCR) (Negative) 03/13/21 03/13/21 03/13/21 Range/Units 14:15 16:11 23:42 RBC (4.7-6.1) M/uL Hct (42-52) % Lymph # (Auto) (1.2-3.4) K/uL APTT (21.0-31.0) Seconds ABG pH 7.46 H 7.47 H (7.35-7.45) ABG pCO2 31 L 30 L (35-46) mmHg ABG pO2 58 L 54 L (80-95) mmHg ABG O2 Saturation (90-95) % Sodium (136-145) mmol/L BUN (7-18) mg/dl BUN/Creatinine Ratio (10-20) Glucose (70-99) mg/dl AST (15-37) U/L Alkaline Phosphatase (45-117) U/L C-Reactive Protein (0-0.29) mg/dl Albumin (3.4-5.0) gm/dl Globulin (2.5-4.0) gm/dl Albumin/Globulin Ratio (0.9-2) SARS-CoV-2 (PCR) POSITIVE A* (Negative) 03/14/21 03/14/21 03/14/21 Range/Units 06:48 06:48 06:48 RBC 4.68 L (4.7-6.1) M/uL Hct 40.2 L (42-52) % Lymph # (Auto) (1.2-3.4) K/uL APTT (21.0-31.0) Seconds ABG pH (7.35-7.45) ABG pCO2 (35-46) mmHg ABG pO2 (80-95) mmHg ABG O2 Saturation (90-95) % Sodium (136-145) mmol/L BUN 20 H (7-18) mg/dl BUN/Creatinine Ratio 21.9 H (10-20) Glucose 156 H (70-99) mg/dl AST (15-37) U/L Alkaline Phosphatase (45-117) U/L C-Reactive Protein 10.10 H (0-0.29) mg/dl Albumin (3.4-5.0) gm/dl Globulin (2.5-4.0) gm/dl Albumin/Globulin Ratio (0.9-2) SARS-CoV-2 (PCR) (Negative) 03/14/21 03/14/21 Range/Units 06:48 06:55 RBC (4.7-6.1) M/uL Hct (42-52) % Lymph # (Auto) (1.2-3.4) K/uL APTT (21.0-31.0) Seconds ABG pH (7.35-7.45) ABG pCO2 32 L (35-46) mmHg ABG pO2 106 H (80-95) mmHg ABG O2 Saturation 98.1 H (90-95) % Sodium (136-145) mmol/L BUN (7-18) mg/dl BUN/Creatinine Ratio (10-20) Glucose (70-99) mg/dl AST 99 H (15-37) U/L Alkaline Phosphatase (45-117) U/L C-Reactive Protein (0-0.29) mg/dl Albumin 2.5 L (3.4-5.0) gm/dl Globulin (2.5-4.0) gm/dl Albumin/Globulin Ratio (0.9-2) SARS-CoV-2 (PCR) (Negative) (1) C3 cervical fracture Encounter type: initial encounter Fracture alignment: displaced Fracture morphology: unspecified fracture morphology Fracture type: closed Qualified Code(s): S12.200A - Unspecified displaced fracture of third cervical vertebra, initial encounter for closed fracture
--- NOTE | 2021-03-14 17:13 | Pulmonary Consultation ---
Date of Consultation March 14, 2021 Assessment & Plan (1) COVID-19: (2) Acute respiratory failure with hypoxia: (3) ARDS (adult respiratory distress syndrome): (4) CAD (coronary artery disease): (5) Morbid obesity: Attending: Dr. Louis Impression: 60-year-old male who contracted COVID-19 approximately 10 days ago. He has had progressive shortness of breath and presented to the emergency department and found to have COVID-19 with associated hypoxia. Patient has an acute C3 cervical fracture and is in a c-collar. Consequently, he is not able to self pronate. Currently no distress. Slight bump in LFTs. No renal failure. Recommendations: 1. COVID-19 with ARDs: Multifocal airspace opacities as well as groundglass appearance on imaging. Patient with progressive hypoxia now requiring high flow supplemental oxygen at 40 L/min and FiO2 of 90%. Continue with dexamethasone. Patient is 10 days out from initial symptoms. No significant indication for remdesivir. We will start patient on Baracitinib 4 mg p.o. daily for 14 days or until intubated or discharged. Continue to attempt to titrate supplemental oxygen. Continue with incentive spirometry. Out of bed to chair as tolerated. Continue isolation per protocol. 2. Elevated LFTs: Patient started today baricitinib. Will follow LFTs and discontinue baricitinib if LFTs reached 3 times normal limits. We will also follow for acute renal failure. 3. Tobacco abuse: Patient quit 2 weeks ago. [id number] history. Continue to encourage complete tobacco abstinence. 4. Morbid obesity: BMI of 38.0 kg/m. Discussed need for weight loss with patient. He is aware. Thank you for including us in the care of this patient. Please refer to Dr. Louis's addendum for further recommendations and corrections. Pulmonary service will continue to follow for now. History of Present Illness Reason for Consultation: Covid ARDs Attending Physician: Maris Ferrell MD History of Present Illness Attending: Dr. Louis This is a 60-year-old male with a past medical history including CAD, C3 cervical fracture, GERD, morbid obesity with a BMI of 38.0 kg/m, dyslipidemia, hypertension, history of NSTEMI, tobacco abuse. Patient was at the [employer] [facility] 2 weeks ago and the following week and began having cough and some shortness of breath. Since that time he has progressively worsened to the point where he presented to the emergency department for evaluation. He was found to be hypoxic and was positive for COVID-19. Imaging revealed multifocal opacification consistent with ARDs. The patient was started on supplemental oxygen 6 L/min via nasal cannula. Within the first 5 or 6 hours of admission, he began to decompensate and this morning was requiring high flow oxygen at 40 L/min and FiO2 of 90%. Patient was seen and examined at bedside. He has no acute distress. He is unable to self proning secondary to c-collar for acute C3 cervical fracture. He does not complain of shortness of breath with supplemental oxygen. He has no significant cough or sputum production. He has no chest pain or tightness. He has no diarrhea. Patient denies any fever, chills, sweats, rigors. He has no other acute constitutional complaints. Patient quit smoking approximately 2 weeks ago. Is a [id number] history. He has not had any reported pulmonary disease in the past. He has never been on inhalers or nebulizer treatments. Patient is not vaccinated for COVID-19 Patient has no other acute complaints at this time. Allergies Allergy/AdvReac Type Severity Reaction Status Date / Time No Known Allergies Allergy Verified 03/13/21 14:27 Home Medications Medication Instructions Recorded Confirmed Type omeprazole 20 mg capsule,delayed 20 mg PO QAM 01/30/18 03/13/21 History release acetaminophen 500 mg tablet 1,000 mg PO Q6H PRN #60 tab MDD 6 02/01/18 03/13/21 Rx (Tylenol Extra Strength) pills a day nitroglycerin 0.4 mg sublingual 0.4 mg SUBLINGUAL Q5M #25 tab 02/01/18 03/13/21 Rx tablet (Nitrostat) atorvastatin 40 mg tablet 40 mg PO QAM tab 12/14/18 03/13/21 History metoprolol tartrate 25 mg tablet 25 mg PO BID #180 tab 02/15/19 03/13/21 Rx ticagrelor 90 mg tablet (Brilinta) 90 mg PO BID 03/09/21 03/13/21 History aspirin 81 mg chewable tablet 81 mg PO QAM 03/13/21 03/13/21 History diclofenac sodium 75 mg 75 mg PO BID 03/13/21 03/13/21 History tablet,delayed release Patient History Medical History Arthritis CAD (coronary artery disease) 2016-NSTEMI s/p IVONNE to distal left circumflex Diverticular disease GERD (gastroesophageal reflux disease) HTN (hypertension) Hyperlipidemia Morbid obesity with BMI of 40.0-44.9, adult NSTEMI (non-ST elevated myocardial infarction) 01/2017--follows with Dr. Lai--reason for Brilinta Pyloric stenosis Spinal stenosis Surgical History History of appendectomy History of cardiac cath 01/2017 @ [facility] with 1 stent placed History of carpal tunnel surgery of right wrist History of colonoscopy with polypectomy History of heart artery stent 01/2017 1 placed History of tonsillectomy History of wisdom tooth extraction Family History Other Heart disease No family history of adverse response to anesthesia Social History Smoking Status: Former smoker Tobacco Type: Cigarettes Cigarettes Per Day: 3-4 a day; Second Hand Exposure: No; Do You Dip or Chew Tobacco: No; Tobacco Cessation Education Requested by Patient: No Hx Alcohol Use: Yes Alcohol type: beer Hx Substance Use: No Preferred Language: Kazakh Communication Ability: Effective 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 No conversational dyspnea. EYES: No icterus, gaze conjugate NOSE: No evidence of epistaxis MOUTH: No lesions or candidiasis NECK: Supple LUNGS: Bibasilar crackles. No bronchospasm. No use of accessory muscles. HEART: Regular, rate controlled ABDOMEN: Soft, NT, ND, BS Present EXTREMITIES: No LE edema, pedal pulses intact NEURO: A&OX3 Results & Data Results & Data ([facility]) Vital Signs (Past 12 Hours) Vital Signs Temp Pulse Pulse Resp BP Pulse Ox 03/14/21 16:26 78 03/14/21 15:21 70 22 91 03/14/21 15:06 36.6 C 76 19 110/59 L 92 03/14/21 11:28 36.7 C 63 19 104/55 L 92 03/14/21 10:45 65 22 95 03/14/21 08:00 63 03/14/21 07:41 36.7 C 60 22 98/41 L 91 03/14/21 07:11 62 22 92 03/14/21 05:54 61 Laboratory Results 03/14/21 06:48 03/14/21 06:48 COVID-19 Results 03/13/21 14:15 SARS-CoV-2 (PCR) POSITIVE A* Diagnostic Findings Chest X-Ray 03/13/21 13:40 XR chest 1V portable CLINICAL HISTORY: Shortness of breath. COMPARISON STUDY: Chest radiograph March 09, 2021. FINDINGS: No pneumothorax or pleural effusion is noted. There is mild enlargement of the cardiac silhouette. Bilateral opacities have developed. Interstitial thickening has progressed. IMPRESSION: Interval development of bilateral opacities and progression of interstitial thickening consistent suggestive of viral pneumonia. Pulmonary edema could appear similar although is considered less likely. ACT 112: Negative or not required by law. Electronically signed by: Dinesh Obrien M.D. 03/13/2021 3:01 PM Chest CTA 03/13/21 15:52 CT ANGIOGRAPHY OF THE CHEST, PULMONARY EMBOLUS PROTOCOL CLINICAL HISTORY: Shortness of breath. Covid. Evaluate for pulmonary embolus. COMPARISON STUDY: Chest CT August 01, 2020. Chest radiograph March 13, 2021. TECHNIQUE: Following IV administration of 118 mL of Optiray, helical axial images of the chest were obtained utilizing the pulmonary embolus protocol. Maximal intensity projections and sagittal and coronal reformats were viewed on an independent 3D workstation. IV contrast was administered without complication. Automated exposure control was utilized for the study. A dose lowering technique was utilized adhering to the principles of ALARA. CT DOSE: 795.30 mGy.cm FINDINGS: No pulmonary emboli are identified. There is no thoracic aortic dissection. Mild cardiomegaly is noted. No pericardial effusion. Multiple enlarged mediastinal and bilateral hilar lymph nodes are noted. Index right paratracheal lymph node measures 1.7 cm in short axis diameter. Index subcarinal lymph node measures 2 cm an index right hilar node measures 1.5 cm. No pneumothorax or pleural effusion is noted. Extensive groundglass opacities throu ghout the lungs are noted. Multiple areas of consolidation are noted. These are most pronounced within the right lower lobe. Upper lobe predominant emphysema is present. Lungs are suboptimally assessed due to respiratory motion. IMPRESSION: 1. No pulmonary emboli identified. 2. Extensive airspace opacities throughout the lungs with multifocal consolidation and groundglass opacities. The findings represent viral pneumonia. 3. Mediastinal bilateral and hilar lymphadenopathy which is likely reactive. 4. Emphysema. ACT 112: Negative or not required by law. Electronically signed by: Dinesh Obrien M.D. 03/14/2021 7:54 AM Chest X-Ray 03/13/21 23:08 XR chest 1V portable CLINICAL HISTORY: low o2 COMPARISON STUDY: Chest radiograph and chest CT March 13, 2021. FINDINGS: Lung volumes are normal. There is no pneumothorax or pleural effusion. Cardiomediastinal silhouette is stable. Extensive bilateral airspace opacities persist. IMPRESSION: No significant change in extensive bilateral airspace opacities suggestive of viral pneumonia. ACT 112: Negative or not required by law. Electronically signed by: Dinesh Obrien M.D. 03/14/2021 7:16 AM Medications Administered Current Inpatient Medications Acetaminophen (Acetaminophen 325 Mg Tab) 650 mg PO Q4H PRN PRN Reason: Pain or Fever Stop: 04/12/21 17:05 Albuterol (Albut/Ipratrop 3mg/0.5mg Neb 3 Ml Vial) 3 ml NEB Q4R PRN PRN Reason: shortness of breath Stop: 04/12/21 17:05 Aspirin (Aspirin 81 Mg Chew) [facility] Stop: 04/13/21 08:59 Last Admin: 03/14/21 09:07 Dose: 81 mg Documented by: Atorvastatin Calcium (Atorvastatin 40 Mg Tab) 40 mg PO QAM LETICIA Stop: 04/13/21 08:59 Last Admin: 03/14/21 09:05 Dose: 40 mg Documented by: Baricitinib (Baricitinib 2 Mg Tab) 4 mg PO DAILY LETICIA Stop: 03/28/21 17:29 Enoxaparin Sodium (Enoxaparin Inj 40 Mg/0.4 Ml Syr) 40 mg SQ Q24H LETICIA Stop: 04/12/21 17:59 Last Admin: 03/13/21 18:03 Dose: 40 mg Documented by: Dexamethasone 6 mg/ Syringe 1.5 mls @ 1 mls/min IV DAILY LETICIA Stop: 03/24/21 06:39 Last Admin: 03/14/21 06:49 Dose: 1 mls/min Documented by: Metoprolol Tartrate (Metoprolol Tartrate 25 Mg Tab) 25 mg PO BID LETICIA Stop: 04/12/21 20:59 Last Admin: 03/14/21 09:04 Dose: Not Given Documented by: Pantoprazole Sodium (Pantoprazole 40 Mg Tab) 40 mg PO QAM LETICIA Stop: 04/13/21 08:59 Last Admin: 03/14/21 09:06 Dose: 40 mg Documented by: Ticagrelor (Ticagrelor 90 Mg Tab) 90 mg PO BID LETICIA Stop: 04/12/21 20:59 Last Admin: 03/14/21 09:04 Dose: 90 mg Documented by: PG Care Time/CCT Total # of Minutes Spent Total Time Spent with Patient: Total time spent is greater than 50% in coordination of care (as documented) at patient's floor/unit and/or counseling patient: 45 minutes Coding Level of Care Code 28328 Inpt Consult Level 5 Diagnoses COVID-19 U07.1 Acute respiratory failure with hypoxia J96.01 ARDS (adult respiratory distress syndrome) J80 CAD (coronary artery disease) I25.10 Morbid obesity E66.01 Time Spent (min) 45
[2021-03-14] MEDS: BARICITINIB 2 MG TAB PO SCH (17:31)
[2021-03-14] MEDS: ENOXAPARIN INJ 40 MG/0.4 ML SYR SQ SCH (17:32)
[2021-03-15 06:17] LABS: Hematocrit (blood only) 41.5 % (42-52); Hemoglobin 14.2 g/dL (14.0-18.0); Mean Corpuscular Hemoglobin 30.1 pg (25-34); Mean Corpuscular Hgb Conc 34.2 g/dL (32-36); Mean Corpuscular Volume 88.1 fL (80-100); Mean Platelet Volume 10.6 fL (7.4-10.4); Platelet Count 200 K/uL (130-400); RDW Coefficient of Variation 14.4 % (11.5-14.5); RDW Standard Deviation 46.7 fL (36.4-46.3); Red Blood Count 4.71 M/uL (4.7-6.1); White Blood Count 13.98 K/uL (4.8-10.8)
[2021-03-15 06:55] LABS: Albumin Level 2.5 gm/dl (3.4-5.0); BUN Creatinine Ratio 28.8 (10-20); Calcium 8.7 mg/dl (8.5-10.1); Creatinine Clr Calc Pharmacy 120.7 ml/min; Est GFR (African American) 114.3 ml/min; Est GFR (Non-African American) 98.6 ml/min; Potassium 4.2 mmol/L (3.5-5.1)
[2021-03-15 06:59] LABS: Albumin Globulin Ratio 0.5 (0.9-2); Bilirubin,Total 0.5 mg/dl (0.2-1); C Reactive Protein 4.73 mg/dl (0-0.29); Ferritin 1391.5 ng/ml (8-388); Globulin 4.6 gm/dl (2.5-4.0); Total Protein 7.1 gm/dl (6.4-8.2)
[2021-03-15 08:14] LABS: D Dimer 790 ug/L FEU (0-500)
[2021-03-15] MEDS: dexAMETHasone 6 MG in SYRINGE 0 ML IV SCH (08:28)
[2021-03-15] MEDS: TICAGRELOR 90 MG TAB PO SCH ×2 (08:28→21:13)
[2021-03-15] MEDS: METOPROLOL TARTRATE 25 MG TAB PO SCH ×2 (08:28→21:13)
[2021-03-15] MEDS: PANTOprazole 40 MG TAB PO SCH (08:29)
[2021-03-15] MEDS: ASPIRIN 81 MG CHEW PO SCH (08:29)
[2021-03-15] MEDS: ATORVASTATIN 40 MG TAB PO SCH (08:29)
[2021-03-15] MEDS: BARICITINIB 2 MG TAB PO SCH (08:31)
--- NOTE | 2021-03-15 12:22 | Internal Med Progress Note ---
Date of Service March 15, 2021 Assessment & Plan (1) Acute respiratory failure with hypoxia: (2) Pneumonia due to COVID-19 virus: Plan: Continue oxygen supplementation. Wean as tolerated Continue incentive spirometry and flutter Continue dexamethasone Tough to self prone due to cervical collar Continue supportive care Started on baricitinib by pulmonary. Will give a dose of Lasix 20 today and monitor (3) C3 cervical fracture: Plan: Patient had a syncopal episode and was seen in the ER on 03/09/2021. Was found to have a cervical fracture and was planned to follow-up with Ortho outpatient. Has a cervical collar currently in place Spine Ortho consult appreciated. Continue to maintain cervical collar at all times. Dr. Ferguson's recommendation. If patient requires intubation will need to be done with the glide scope or fiberoptic maintain cervical alignment and to maintain cervical collar if intubated (4) CAD (coronary artery disease): Plan: Appears stable, no reports of chest pain Continue ASA, Brilinta, beta-ruby, statin (5) DVT prophylaxis: Plan: SQ Lovenox Admission and Anticipated Discharge Date Admission Date: March 13, 2021 Subjective 60-year-old man with history of CAD status post drug-eluting stent to distal left circumflex in 2017, hypertension, tobacco use, recent diagnosis of Covid at an outside facility about a week ago, syncopal events presenting to our ER on 1023 and found to have acute minimally distracted avulsion fracture of the anterior-inferior C3 vertebra and was placed on trach collar and plan to follow- up outpatient with spine Ortho who presented with worsening shortness of breath and cough for about 10 days. Being managed for acute hypoxic respiratory failure due to COVID-19 pneumonia. Patient seen and examined today Reports cough, dyspnea on exertion. Denies any anorexia, nausea, vomiting, diarrhea. Denies any neck pain Remains on high flow nasal oxygen Review of Systems Constitutional: no fatigue and no anorexia Respiratory: + cough and + dyspnea on exertion Cardiovascular: + dyspnea on exertion; no chest pain, no palpitations, no lightheadedness and no edema Gastrointestinal: no abdominal pain, no nausea, no vomiting and no diarrhea/loose stools Genitourinary: no dysuria, no difficulty urinating or no urinary frequency Musculoskeletal: No neck pain Neurologic: no paresthesia, no dizziness and no headache(s) Psychiatric: no depression and no anxiety Physical Exam Constitutional: + well hydrated and + obese; no acute distress Eyes: PERRL, conjunctivae normal, anicteric sclerae ENMT: external ear and nose normal, oropharynx normal Respiratory: Not in respiratory distress, on high flow nasal oxygen, basilar crackles Cardiovascular: RRR. S1-S2 Gastrointestinal (Abdomen): normal bowel sounds, soft, nontender, no hepatosplenomegaly Musculoskeletal: No pedal edema Neurologic: PERRL, EOMI, accommodation nl, no face palsy, no dysarthria Psychiatric: A+Ox3, euthymic affect Results & Data ([facility]) Vital Signs (Past 12 Hours) Vital Signs Temp Pulse Pulse Resp BP Pulse Ox 03/15/21 11:31 64 18 90 03/15/21 11:28 36.5 C 64 19 121/64 89 L 03/15/21 08:12 58 L 18 88 L 03/15/21 08:00 53 L 03/15/21 07:16 36.5 C 59 L 19 99/54 L 91 03/15/21 03:15 36.4 C L 62 22 118/57 L 92 03/15/21 03:09 80 20 95 Laboratory Results Abnormal lab results 03/15/21 03/15/21 03/15/21 Range/Units 05:48 05:48 05:48 WBC 13.98 H (4.8-10.8) K/uL Hct 41.5 L (42-52) % RDW Std Deviation 46.7 H (36.4-46.3) fL MPV 10.6 H (7.4-10.4) fL D-Dimer 790 H* (0-500) ug/L FEU BUN 22 H (7-18) mg/dl BUN/Creatinine Ratio 28.8 H (10-20) Glucose 118 H (70-99) mg/dl Ferritin 1391.5 H (8-388) ng/ml AST 88 H (15-37) U/L C-Reactive Protein 4.73 H (0-0.29) mg/dl Albumin 2.5 L (3.4-5.0) gm/dl Globulin 4.6 H (2.5-4.0) gm/dl Albumin/Globulin Ratio 0.5 L (0.9-2) (1) C3 cervical fracture Encounter type: initial encounter Fracture alignment: displaced Fracture morphology: unspecified fracture morphology Fracture type: closed Qualified Code(s): S12.200A - Unspecified displaced fracture of third cervical vertebra, initial encounter for closed fracture
--- NOTE | 2021-03-15 15:28 | Pulmonology Progress Note ---
Date of Service March 15, 2021 Assessment & Plan (1) COVID-19: (2) Acute respiratory failure with hypoxia: (3) ARDS (adult respiratory distress syndrome): (4) CAD (coronary artery disease): (5) Morbid obesity: Plan: Attending: Dr. Louis Impression: 60-year-old male who contracted COVID-19 approximately 10 days ago. He has had progressive shortness of breath and presented to the emergency department and found to have COVID-19 with associated hypoxia. Patient has an acute C3 cervical fracture and is in a c-collar. Consequently, he is not able to self pronate. Currently no distress. Slight bump in LFTs. No renal failure. Recommendations: 1. COVID-19 with ARDs: Multifocal airspace opacities as well as groundglass appearance on imaging. Wean high flow oxygen at bedside to 75% FiO2 and 50 L. Continue with dexamethasone. Patient is 10 days out from initial symptoms. No indication for remdesivir. Continueon Baracitinib 4 mg p.o. daily for 14 days or until intubated or discharged. Continue with incentive spirometry. Out of bed to chair as tolerated. Continue isolation per protocol. 2. Elevated LFTs: LFTs downtrending. CRP down trended from 10.1-4.73. 3. Tobacco abuse: Patient quit 2 weeks ago. [id number]-[id number] history. Continue to encourage complete tobacco abstinence. He is certainly at high risk for possible decompensation requiring intubation mechanical ventilation. Should he have a significant respiratory dec ompensation, please do not hesitate to contact the ICU service for further care. However, at this time he does appear to be slowly improving. Anticipated prolonged hospitalization with the possibility of needing long-term supplemental oxygen therapy. Thank you for the consultation. Pulmonary will sign off at this time. Please call with questions. Admission and Anticipated Discharge Date Admission Date: March 13, 2021 Subjective Patient seen and examined at bedside. Denies shortness of breath. Feels improved compared to yesterday. No chest pain. Eating well. Watching television. Continue on high flow oxygen. Review of Systems Review of Systems: All systems reviewed & are unremarkable except as noted in HPI & below Physical Exam Physical Exam: GENERAL : No acute distress. No conversational dyspnea. EYES: No icterus, gaze conjugate NOSE: No evidence of epistaxis MOUTH: No lesions or candidiasis NECK: Supple LUNGS: Bibasilar crackles. No bronchospasm. No use of accessory muscles. HEART: Regular, rate controlled ABDOMEN: Soft, NT, ND, BS Present EXTREMITIES: No LE edema, pedal pulses intact NEURO: A&OX3 Results & Data Results & Data ([facility]) Vital Signs (Past 12 Hours) Vital Signs Temp Pulse Pulse Resp BP Pulse Ox 03/15/21 15:14 97.7 F 63 20 114/63 90 03/15/21 15:02 63 18 89 L 03/15/21 11:31 64 18 90 03/15/21 11:28 97.7 F 64 19 121/64 89 L 03/15/21 08:12 58 L 18 88 L 03/15/21 08:00 53 L 03/15/21 07:16 97.7 F 59 L 19 99/[address] chest reviewed with diffuse severe bilateral groundglass opacities. Emphysematous changes noted in the upper lobes. PG Care Time/CCT Total # of Minutes Spent Total Time Spent with Patient: Total time spent is greater than 50% in coordination of care (as documented) at patient's floor/unit and/or counseling patient: Coding Level of Care Code 41356 Subseq Hosp Care Lvl 2 Diagnoses COVID-19 U07.1 Acute respiratory failure with hypoxia J96.01 ARDS (adult respiratory distress syndrome) J80 CAD (coronary artery disease) I25.10 Morbid obesity E66.01
[2021-03-15] MEDS ORDERED: FUROSEMIDE INJ 20 MG/2 ML VIAL IV ONE (15:29)
[2021-03-15] MEDS: ENOXAPARIN INJ 40 MG/0.4 ML SYR SQ SCH (17:45)
[2021-03-16 06:20] LABS: Hematocrit (blood only) 41.9 % (42-52); Hemoglobin 14.3 g/dL (14.0-18.0); Mean Corpuscular Hemoglobin 30.2 pg (25-34); Mean Corpuscular Hgb Conc 34.1 g/dL (32-36); Mean Corpuscular Volume 88.4 fL (80-100); Mean Platelet Volume 10.6 fL (7.4-10.4); Platelet Count 246 K/uL (130-400); RDW Coefficient of Variation 14.4 % (11.5-14.5); Red Blood Count 4.74 M/uL (4.7-6.1); White Blood Count 14.82 K/uL (4.8-10.8)
[2021-03-16 07:02] LABS: Albumin Level 2.6 gm/dl (3.4-5.0); Calcium 8.9 mg/dl (8.5-10.1); Creatinine Clr Calc Pharmacy 105.8 ml/min; Est GFR (African American) 108.2 ml/min; Est GFR (Non-African American) 93.4 ml/min; Magnesium 2.8 mg/dl (1.8-2.4); Potassium 4.6 mmol/L (3.5-5.1)
[2021-03-16 07:05] LABS: Albumin Globulin Ratio 0.6 (0.9-2); Bilirubin,Total 0.5 mg/dl (0.2-1); C Reactive Protein 1.93 mg/dl (0-0.29); Globulin 4.6 gm/dl (2.5-4.0); Phosphorus 3.4 mg/dl (2.5-4.9); Total Protein 7.2 gm/dl (6.4-8.2)
[2021-03-16] MEDS: METOPROLOL TARTRATE 25 MG TAB PO SCH ×2 (08:19→21:24)
[2021-03-16] MEDS: dexAMETHasone 6 MG in SYRINGE 0 ML IV SCH (08:19)
[2021-03-16] MEDS: TICAGRELOR 90 MG TAB PO SCH ×2 (08:19→21:24)
[2021-03-16] MEDS: ATORVASTATIN 40 MG TAB PO SCH (08:20)
[2021-03-16] MEDS: ASPIRIN 81 MG CHEW PO SCH (08:20)
[2021-03-16] MEDS: PANTOprazole 40 MG TAB PO SCH (08:20)
[2021-03-16] MEDS: BARICITINIB 2 MG TAB PO SCH (08:45)
--- NOTE | 2021-03-16 11:45 | Hospitalist Progress Note ---
Date of Service March 16, 2021 Assessment & Plan (1) Acute respiratory failure with hypoxia: (2) Pneumonia due to COVID-19 virus: Plan: Continue oxygen supplementation and wean as tolerated Continue incentive spirometry and flutter Continue dexamethasone Continue supportive care Continue baricitinib LFTs has been mildly elevated on admission and started trending down. Increased AST 101,ALT 80, AlkPhosp 127 today Monitor closely CRP continues to trend down from 11.6 to 1.93 today Will give a dose of Lasix 20 today and monitor (3) C3 cervical fracture: Plan: Patient had a syncopal episode and was seen in the ER on 03/09/2021. Was found to have a cervical fracture and was planned to follow-up with Ortho outpatient. Has a cervical collar currently in place Spine Ortho consult appreciated. Continue to maintain cervical collar at all times. Dr. Ferguson's recommendation. If patient requires intubation will need to be done with the glide scope or fiberoptic maintain cervical alignment and to maintain cervical collar if intubated (4) CAD (coronary artery disease): Plan: Appears stable, no reports of chest pain Continue ASA, Brilinta, beta-ruby, statin (5) DVT prophylaxis: Plan: SQ Lovenox Daughter was on the phone and was updated Admission and Anticipated Discharge Date Admission Date: March 13, 2021 Subjective 60-year-old man with history of CAD status post drug-eluting stent to distal left circumflex in 2017, hypertension, tobacco use, recent diagnosis of Covid at an outside facility about a week ago, syncopal events presenting to our ER on 03/09 and found to have acute minimally distracted avulsion fracture of the anterior-inferior C3 vertebra and was placed on trach collar and plan to follow- up outpatient with spine Ortho who presented with worsening shortness of breath and cough for about 10 days. Being managed for acute hypoxic respiratory failure due to COVID-19 pneumonia. Patient seen and examined today Reports cough, States exertional dyspnea is remarkably improved Denies any anorexia, nausea, vomiting, diarrhea. Denies any neck pain Remains on high flow nasal oxygen but FiO2 is down from 100% on 03/14 to 60% and flow rate down from 75L to 40L Review of Systems Constitutional: no fatigue and no anorexia Respiratory: + cough and + dyspnea on exertion (Improving) Cardiovascular: + dyspnea on exertion (Improving); no chest pain, no palpitat ions, no lightheadedness and no edema Gastrointestinal: no abdominal pain, no nausea, no vomiting and no diarrhea/loose stools Genitourinary: no dysuria, no difficulty urinating or no urinary frequency Musculoskeletal: No neck pain Neurologic: no paresthesia, no dizziness and no headache(s) Psychiatric: no depression and no anxiety Physical Exam Constitutional: + well hydrated and + obese; no acute distress Eyes: PERRL, conjunctivae normal, anicteric sclerae ENMT: external ear and nose normal, oropharynx normal Neck: Neck collar in place Respiratory: Not in respiratory distress, on high flow nasal cannula, diminished breath sounds Cardiovascular: RRR, S1-S2 Gastrointestinal (Abdomen): normal bowel sounds, soft, nontender, no hepatosplenomegaly Musculoskeletal: No pedal edema Neurologic: PERRL, EOMI, accommodation nl, no face palsy, no dysarthria Psychiatric: A+Ox3, euthymic affect Results & Data Results & Data ([facility]) Vital Signs (Past 12 Hours) Vital Signs Temp Pulse Pulse Resp BP Pulse Ox 03/16/21 08:13 36.6 C 58 L 24 121/70 96 03/16/21 07:35 52 L 03/16/21 05:33 52 L 24 94 03/16/21 03:13 36.8 C 60 17 139/75 96 03/16/21 02:47 60 20 98 Laboratory Results Abnormal lab results 03/16/21 03/16/21 Range/Units 05:42 05:42 WBC 14.82 H (4.8-10.8) K/uL Hct 41.9 L (42-52) % RDW Std Deviation 47.0 H (36.4-46.3) fL MPV 10.6 H (7.4-10.4) fL BUN 24 H (7-18) mg/dl BUN/Creatinine Ratio 27.0 H (10-20) Glucose 102 H (70-99) mg/dl Magnesium 2.8 H (1.8-2.4) mg/dl AST 101 H (15-37) U/L ALT 80 H (12-78) U/L Alkaline Phosphatase 127 H (45-117) U/L C-Reactive Protein 1.93 H (0-0.29) mg/dl Albumin 2.6 L (3.4-5.0) gm/dl Globulin 4.6 H (2.5-4.0) gm/dl Albumin/Globulin Ratio 0.6 L (0.9-2) (1) C3 cervical fracture Encounter type: initial encounter Fracture alignment: displaced Fracture morphology: unspecified fracture morphology Fracture type: closed Qualified Code(s): S12.200A - Unspecified displaced fracture of third cervical vertebra, initial encounter for closed fracture
[2021-03-16] MEDS ORDERED: FUROSEMIDE INJ 20 MG/2 ML VIAL IV ONE (12:57)
[2021-03-16] MEDS: ENOXAPARIN INJ 40 MG/0.4 ML SYR SQ SCH (17:50)
[2021-03-17 06:13] LABS: Hematocrit (blood only) 43.9 % (42-52); Hemoglobin 15.1 g/dL (14.0-18.0); Mean Corpuscular Hemoglobin 30.4 pg (25-34); Mean Corpuscular Hgb Conc 34.4 g/dL (32-36); Mean Corpuscular Volume 88.5 fL (80-100); Mean Platelet Volume 10.2 fL (7.4-10.4); Platelet Count 276 K/uL (130-400); RDW Coefficient of Variation 14.1 % (11.5-14.5); RDW Standard Deviation 45.8 fL (36.4-46.3); Red Blood Count 4.96 M/uL (4.7-6.1); White Blood Count 15.22 K/uL (4.8-10.8)
[2021-03-17 06:34] LABS: Creatinine Clr Calc Pharmacy 112.6 ml/min; Est GFR (African American) 110.8 ml/min; Est GFR (Non-African American) 95.6 ml/min; Magnesium 2.6 mg/dl (1.8-2.4); Potassium 4.2 mmol/L (3.5-5.1)
[2021-03-17 06:38] LABS: Albumin Level 2.7 gm/dl (3.4-5.0); BUN Creatinine Ratio 24.8 (10-20); Calcium 8.8 mg/dl (8.5-10.1)
[2021-03-17 06:44] LABS: Albumin Globulin Ratio 0.5 (0.9-2); Bilirubin Direct 0.3 mg/dl (0-0.2); C Reactive Protein 4.82 mg/dl (0-0.29); Globulin 5.1 gm/dl (2.5-4.0); Phosphorus 3.5 mg/dl (2.5-4.9); Total Protein 7.8 gm/dl (6.4-8.2)
[2021-03-17 07:16] LABS: D Dimer 1460 ug/L FEU (0-500)
[2021-03-17] MEDS: ASPIRIN 81 MG CHEW PO SCH (08:00)
[2021-03-17] MEDS: BARICITINIB 2 MG TAB PO SCH (08:14)
[2021-03-17] MEDS: dexAMETHasone 6 MG in SYRINGE 0 ML IV SCH (08:14)
[2021-03-17] MEDS: METOPROLOL TARTRATE 25 MG TAB PO SCH ×2 (08:19→21:00)
[2021-03-17] MEDS: TICAGRELOR 90 MG TAB PO SCH ×2 (08:19→21:00)
[2021-03-17] MEDS: PANTOprazole 40 MG TAB PO SCH (08:19)
[2021-03-17] MEDS: ATORVASTATIN 40 MG TAB PO SCH (08:19)
--- NOTE | 2021-03-17 11:46 | Hospitalist Progress Note ---
Date of Service March 17, 2021 Assessment & Plan (1) Acute respiratory failure with hypoxia: (2) Pneumonia due to COVID-19 virus: Plan: Continue oxygen supplementation and wean as tolerated Continue incentive spirometry and flutter Continue dexamethasone Continue supportive care LFT continue to go up Discussed with Medication Tech. Hold baricitinib for now and monitor LFTs Leukocytosis likely due to steroid No fever. Improving oxygen requirement (3) C3 cervical fracture: Plan: Patient had a syncopal episode and was seen in the ER on 03/09/2021. Was found to have a cervical fracture and was planned to follow-up with Ortho outpatient. Has a cervical collar currently in place Spine Ortho consult appreciated. Continue to maintain cervical collar at all times. Dr. Ferguson's recommendation. If patient requires intubation will need to be done with the glide scope or fiberoptic maintain cervical alignment and to maintain cervical collar if intubated (4) CAD (coronary artery disease): Plan: Appears stable, no reports of chest pain Continue ASA, Brilinta, beta-ruby, statin (5) DVT prophylaxis: Plan: SQ Lovenox Daughter was on the phone during my evaluation and was updated Admission and Anticipated Discharge Date Admission Date: March 13, 2021 Subjective 60-year-old man with history of CAD status post drug-eluting stent to distal left circumflex in 2017, hypertension, tobacco use, recent diagnosis of Covid at an outside facility about a week ago, syncopal events presenting to our ER on 03/09 and found to have acute minimally distracted avulsion fracture of the anterior-inferior C3 vertebra and was placed on trach collar and plan to follow- up outpatient with spine Ortho who presented with worsening shortness of breath and cough for about 10 days. Being managed for acute hypoxic respiratory failure due to COVID-19 pneumonia. Patient seen and examined today Reports minimal cough today States exertional dyspnea continue to improve Denies any anorexia, nausea, vomiting, diarrhea. Denies any neck pain Remains on high flow nasal oxygen but flow rate is remarkably down Review of Systems Constitutional: no fatigue and no anorexia Respiratory: + cough and + dyspnea on exertion (Improving) Cardiovascular: + dyspnea on exertion (Improving); no chest pain, no palpitations, no lightheadedness and no edema Gastrointestinal: no abdominal pain, no nausea, no vomiting and no diarrhea/loose stools Genitourinary: no dysuria, no difficulty urinating or no urinary frequency Musculoskeletal: No neck pain Neurologic: no paresthesia, no dizziness and no headache(s) Psychiatric: no depression and no anxiety Physical Exam Constitutional: + well hydrated and + obese; no acute distress Eyes: PERRL, conjunctivae normal, anicteric sclerae ENMT: external ear and nose normal, oropharynx normal Respiratory: Not in resp distress. Diminished breath sounds. No crackles Cardiovascular: RRR S1 S2 Gastrointestinal (Abdomen): normal bowel sounds, soft, nontender, no hepatosplenomegaly Musculoskeletal: No pedal edema Neurologic: PERRL, EOMI, accommodation nl, no face palsy, no dysarthria Psychiatric: A+Ox3, euthymic affect Results & Data Results & Data ([facility]) Vital Signs (Past 12 Hours) Vital Signs Temp Pulse Pulse Resp BP Pulse Ox 03/17/21 10:43 20 93 03/17/21 09:15 70 24 92 03/17/21 08:11 36.9 C 79 28 H 154/77 H 90 03/17/21 07:30 81 21 89 L 03/17/21 07:22 68 03/17/21 03:23 37.2 C 75 20 121/69 90 03/17/21 02:05 68 20 93 Laboratory Results Abnormal lab results 03/17/21 03/17/21 03/17/21 Range/Units 05:40 05:40 05:40 WBC 15.22 H (4.8-10.8) K/uL D-Dimer 1460 H* (0-500) ug/L FEU BUN 21 H (7-18) mg/dl BUN/Creatinine Ratio 24.8 H (10-20) Magnesium 2.6 H (1.8-2.4) mg/dl Direct Bilirubin 0.3 H (0-0.2) mg/dl AST 115 H (15-37) U/L ALT 126 H (12-78) U/L Alkaline Phosphatase 152 H (45-117) U/L C-Reactive Protein 4.82 H (0-0.29) mg/dl Albumin 2.7 L (3.4-5.0) gm/dl Globulin 5.1 H (2.5-4.0) gm/dl Albumin/Globulin Ratio 0.5 L (0.9-2) (1) C3 cervical fracture Encounter type: initial encounter Fracture alignment: displaced Fracture morphology: unspecified fracture morphology Fracture type: closed Qualified Code(s): S12.200A - Unspecified displaced fracture of third cervical vertebra, initial encounter for closed fracture
[2021-03-17] MEDS ORDERED: MELATONIN 3 MG TAB PO PRN (17:03)
[2021-03-17] MEDS: ENOXAPARIN INJ 40 MG/0.4 ML SYR SQ SCH (18:34)
[2021-03-18 07:21] LABS: Hematocrit (blood only) 44.6 % (42-52); Hemoglobin 15.2 g/dL (14.0-18.0); Mean Corpuscular Hemoglobin 30.2 pg (25-34); Mean Corpuscular Hgb Conc 34.1 g/dL (32-36); Mean Corpuscular Volume 88.5 fL (80-100); Mean Platelet Volume 10.3 fL (7.4-10.4); Platelet Count 314 K/uL (130-400); RDW Coefficient of Variation 14.1 % (11.5-14.5); RDW Standard Deviation 45.8 fL (36.4-46.3); Red Blood Count 5.04 M/uL (4.7-6.1); White Blood Count 14.22 K/uL (4.8-10.8)
[2021-03-18 08:04] LABS: D Dimer 1770 ug/L FEU (0-500)
[2021-03-18 08:08] LABS: Albumin Level 2.6 gm/dl (3.4-5.0); BUN Creatinine Ratio 20.2 (10-20); C Reactive Protein 15.3 mg/dl (0-0.29); Calcium 9.3 mg/dl (8.5-10.1); Creatinine Clr Calc Pharmacy 97.2 ml/min; Est GFR (African American) 99.2 ml/min; Est GFR (Non-African American) 85.6 ml/min; Magnesium 2.9 mg/dl (1.8-2.4); Potassium 4.3 mmol/L (3.5-5.1)
[2021-03-18 08:10] LABS: Albumin Globulin Ratio 0.5 (0.9-2); Bilirubin,Total 0.9 mg/dl (0.2-1); Globulin 5.5 gm/dl (2.5-4.0); Total Protein 8.1 gm/dl (6.4-8.2)
[2021-03-18] MEDS: ATORVASTATIN 40 MG TAB PO SCH (08:27)
[2021-03-18] MEDS: dexAMETHasone 6 MG in SYRINGE 0 ML IV SCH (08:27)
[2021-03-18] MEDS: PANTOprazole 40 MG TAB PO SCH (08:27)
[2021-03-18] MEDS: METOPROLOL TARTRATE 25 MG TAB PO SCH ×2 (08:27→20:25)
[2021-03-18] MEDS: TICAGRELOR 90 MG TAB PO SCH ×2 (08:27→20:26)
[2021-03-18] MEDS: ASPIRIN 81 MG CHEW PO SCH (08:27)
--- NOTE | 2021-03-18 11:54 | Hospitalist Progress Note ---
Date of Service March 18, 2021 Assessment & Plan (1) Acute respiratory failure with hypoxia: (2) Pneumonia due to COVID-19 virus: Plan: Continue oxygen supplementation and wean as tolerated Continue incentive spirometry and flutter Patient feeling better, asking about discharge. Reports he is almost feeling like his usual self His LFT elevated, CRP going up He is clinically improving with improvement in symptoms and reducing oxygen requirement. I discussed with Sports Attorney Dr Vines He recommends increasing remaining doses of dexamethasone to 10mg and to add atypical coverage since his scans suggests possible COPD Baricitinib discontinued Doxycycline ordered (3) C3 cervical fracture: Plan: Patient had a syncopal episode and was seen in the ER on 03/09/2021. Was found to have a cervical fracture and was planned to follow-up with Ortho outpatient. Has a cervical collar currently in place Spine Ortho consult appreciated. Continue to maintain cervical collar at all times. Dr. Ferguson's recommendation. If patient requires intubation will need to be done with the glide scope or fiberoptic maintain cervical alignment and to maintain cervical collar if intubated (4) CAD (coronary artery disease): Plan: Appears stable, no reports of chest pain Continue ASA, Brilinta, beta-ruby, statin (5) DVT prophylaxis: Plan: SQ Lovenox Admission and Anticipated Discharge Date Admission Date: March 13, 2021 Subjective 60-year-old man with history of CAD status post drug-eluting stent to distal left circumflex in 2017, hypertension, tobacco use, recent diagnosis of Covid at an outside facility about a week ago, syncopal events presenting to our ER on 03/09 and found to have acute minimally distracted avulsion fracture of the anterior-inferior C3 vertebra and was placed on trach collar and plan to follow- up outpatient with spine Ortho who presented with worsening shortness of breath and cough for about 10 days. Being managed for acute hypoxic respiratory failure due to COVID-19 pneumonia. Patient seen and examined today Reports cough and exertional dyspnea remarkably improved Denies any anorexia, nausea, vomiting, diarrhea. Denies any neck pain Remains on high flow nasal oxygen 15l/min Review of Systems Constitutional: no fatigue and no anorexia Respiratory: + cough and + dyspnea on exertion (Improving) Cardiovascular: + dyspnea on exertion (Improving); no chest pain, no palpitations, no lightheadedness and no edema Gastrointestinal: no abdominal pain, no nausea, no vomiting and no diarrhea/loose stools Genitourinary: no dysuria, no difficulty urinating or no urinary frequency Musculoskeletal: No neck pain Neurologic: no paresthesia, no dizziness and no headache(s) Psychiatric: no depression and no anxiety Physical Exam Constitutional: + well hydrated and + obese; no acute distress Eyes: PERRL, conjunctivae normal, anicteric sclerae ENMT: external ear and nose normal, oropharynx normal Respiratory: Not in resp distress, on HFNC, diminished breath sounds Cardiovascular: RRR S1 S2 Gastrointestinal (Abdomen): normal bowel sounds, soft, nontender, no hepatosplenomegaly Musculoskeletal: No pedal edema Neurologic: PERRL, EOMI, accommodation nl, no face palsy, no dysarthria Psychiatric: A+Ox3, euthymic affect Results & Data Results & Data ([facility]) Vital Signs (Past 12 Hours) Vital Signs Temp Pulse Pulse Resp BP Pulse Ox 03/18/21 07:43 96 H 03/18/21 06:51 36.8 C 98 H 21 120/65 91 03/18/21 03:36 36.8 C 74 20 129/58 L 95 Laboratory Results Abnormal lab results 03/18/21 03/18/21 03/18/21 Range/Units 06:19 06:19 06:19 WBC 14.22 H (4.8-10.8) K/uL D-Dimer 1770 H* (0-500) ug/L FEU BUN 19 H (7-18) mg/dl BUN/Creatinine Ratio 20.2 H (10-20) Glucose 105 H (70-99) mg/dl Magnesium 2.9 H (1.8-2.4) mg/dl AST 66 H (15-37) U/L ALT 106 H (12-78) U/L Alkaline Phosphatase 150 H (45-117) U/L C-Reactive Protein 15.30 H (0-0.29) mg/dl Albumin 2.6 L (3.4-5.0) gm/dl Globulin 5.5 H (2.5-4.0) gm/dl Albumin/Globulin Ratio 0.5 L (0.9-2) (1) C3 cervical fracture Encounter type: initial encounter Fracture alignment: displaced Fracture morphology: unspecified fracture morphology Fracture type: closed Qualified Code(s): S12.200A - Unspecified displaced fracture of third cervical vertebra, initial encounter for closed fracture
[2021-03-18] MEDS: DOXYCYCLINE HYCLATE 100 MG CAP PO SCH ×2 (14:41→20:25)
[2021-03-18] MEDS: ENOXAPARIN INJ 40 MG/0.4 ML SYR SQ SCH (18:23)
[2021-03-19 06:22] LABS: Hematocrit (blood only) 43.7 % (42-52); Hemoglobin 15.1 g/dL (14.0-18.0); Mean Corpuscular Hemoglobin 30.5 pg (25-34); Mean Corpuscular Hgb Conc 34.6 g/dL (32-36); Mean Corpuscular Volume 88.3 fL (80-100); Mean Platelet Volume 10.6 fL (7.4-10.4); Platelet Count 353 K/uL (130-400); RDW Standard Deviation 45.4 fL (36.4-46.3); Red Blood Count 4.95 M/uL (4.7-6.1); White Blood Count 15.08 K/uL (4.8-10.8)
[2021-03-19 07:59] LABS: Albumin Level 2.4 gm/dl (3.4-5.0); BUN Creatinine Ratio 22.5 (10-20); Bilirubin Direct 0.3 mg/dl (0-0.2); Calcium 9.6 mg/dl (8.5-10.1); Creatinine Clr Calc Pharmacy 112.5 ml/min; Est GFR (African American) 110.8 ml/min; Est GFR (Non-African American) 95.6 ml/min; Magnesium 2.8 mg/dl (1.8-2.4); Potassium 4.3 mmol/L (3.5-5.1)
[2021-03-19 08:02] LABS: Albumin Globulin Ratio 0.4 (0.9-2); C Reactive Protein 17.8 mg/dl (0-0.29); Globulin 5.7 gm/dl (2.5-4.0); Phosphorus 3.3 mg/dl (2.5-4.9); Total Protein 8.1 gm/dl (6.4-8.2)
[2021-03-19] MEDS: METOPROLOL TARTRATE 25 MG TAB PO SCH ×2 (08:30→21:26)
[2021-03-19] MEDS: DOXYCYCLINE HYCLATE 100 MG CAP PO SCH ×2 (08:31→21:26)
[2021-03-19] MEDS: TICAGRELOR 90 MG TAB PO SCH ×2 (08:31→21:26)
[2021-03-19] MEDS: ATORVASTATIN 40 MG TAB PO SCH (08:31)
[2021-03-19] MEDS: ASPIRIN 81 MG CHEW PO SCH (08:31)
[2021-03-19] MEDS: dexAMETHasone 10 MG in SYRINGE 0 ML IV SCH (08:32)
[2021-03-19] MEDS: PANTOprazole 40 MG TAB PO SCH (08:32)
[2021-03-19] MEDS ORDERED: FUROSEMIDE INJ 20 MG/2 ML VIAL IV ONE (13:00)
--- NOTE | 2021-03-19 13:00 | Hospitalist Progress Note ---
Date of Service March 19, 2021 Assessment & Plan (1) Acute respiratory failure with hypoxia: (2) Pneumonia due to COVID-19 virus: Plan: Continue oxygen supplementation and wean as tolerated Continue incentive spirometry and flutter Patient feeling better Continue to wean oxygen down Will give a dose of lasix 20mg 1v Discussed with Medical And Scientific Illustrator Dr Vines yesterday who recommended increasing remaining doses of dexamethasone to 10mg and to add atypical coverage since his scans suggests possible COPD Baricitinib was discontinued to due elevated LFT. LFT trending down Continue doxycycline (3) C3 cervical fracture: Plan: Patient had a syncopal episode and was seen in the ER on 03/09/2021. Was found to have a cervical fracture and was planned to follow-up with Ortho outpatient. Spine Ortho consult appreciated. Continue to maintain cervical collar at all times. Dr. Ferguson's recommendation. If patient requires intubation will need to be done with the glide scope or fiberoptic maintain cervical alignment and to maintain cervical collar if intubated (4) CAD (coronary artery disease): Plan: Appears stable, no reports of chest pain Continue ASA, Brilinta, beta-ruby, statin (5) DVT prophylaxis: Plan: SQ Lovenox Admission and Anticipated Discharge Date Admission Date: March 13, 2021 Subjective 60-year-old man with history of CAD status post drug-eluting stent to distal left circumflex in 2017, hypertension, tobacco use, recent diagnosis of Covid at an outside facility about a week ago, syncopal events presenting to our ER on 03/09 and found to have acute minimally distracted avulsion fracture of the anterior-inferior C3 vertebra and was placed on trach collar and plan to follow- up outpatient with spine Ortho who presented with worsening shortness of breath and cough for about 10 days. Being managed for acute hypoxic respiratory failure due to COVID-19 pneumonia. Patient seen and examined today Reports cough and exertional dyspnea continue to improve Denies any anorexia, nausea, vomiting, diarrhea. Remains on high flow nasal oxygen 10l/min Review of Systems Constitutional: no fatigue and no anorexia Respiratory: + cough and + dyspnea on exertion (Improving) Cardiovascular: + dyspnea on exertion (Improving); no chest pain, no palpitations, no lightheadedness and no edema Gastrointestinal: no abdominal pain, no nausea, no vomiting and no diarrhea/loose stools Genitourinary: no dysuria, no difficulty urinating or no urinary frequency Neurologic: no paresthesia, no dizziness and no headache(s) Psychiatric: no depression and no anxiety Physical Exam Constitutional: + well hydrated and + obese; no acute distress Eyes: PERRL, conjunctivae normal, anicteric sclerae ENMT: external ear and nose normal, oropharynx normal Respiratory: On 10l/min HFNC, no resp distress, mild basilar crackles, diminished breath sounds Cardiovascular: RRR S1 S2 Gastrointestinal (Abdomen): normal bowel sounds, soft, nontender, no hepatosplenomegaly Musculoskeletal: No pedal edema Neurologic: PERRL, EOMI, accommodation nl, no face palsy, no dysarthria Psychiatric: A+Ox3, euthymic affect Results & Data Results & Data ([facility]) Vital Signs (Past 12 Hours) Vital Signs Temp Pulse Pulse Resp BP Pulse Ox 03/19/21 11:38 36.8 C 81 20 117/56 L 91 03/19/21 09:25 76 03/19/21 07:42 36.8 C 81 20 116/62 89 L 03/19/21 03:10 36.8 C 76 18 121/62 90 Laboratory Results Abnormal lab results 03/19/21 03/19/21 Range/Units 05:42 05:42 WBC 15.08 H (4.8-10.8) K/uL MPV 10.6 H (7.4-10.4) fL Sodium 133 L (136-145) mmol/L BUN 19 H (7-18) mg/dl BUN/Creatinine Ratio 22.5 H (10-20) Magnesium 2.8 H (1.8-2.4) mg/dl Direct Bilirubin 0.3 H (0-0.2) mg/dl AST 45 H (15-37) U/L ALT 79 H (12-78) U/L Alkaline Phosphatase 158 H (45-117) U/L C-Reactive Protein 17.80 H (0-0.29) mg/dl Albumin 2.4 L (3.4-5.0) gm/dl Globulin 5.7 H (2.5-4.0) gm/dl Albumin/Globulin Ratio 0.4 L (0.9-2) (1) C3 cervical fracture Encounter type: initial encounter Fracture alignment: displaced Fracture morphology: unspecified fracture morphology Fracture type: closed Qualified Code(s): S12.200A - Unspecified displaced fracture of third cervical vertebra, initial encounter for closed fracture
[2021-03-19] MEDS: ENOXAPARIN INJ 40 MG/0.4 ML SYR SQ SCH (18:21)
[2021-03-20 06:33] LABS: Hematocrit (blood only) 46.4 % (42-52); Hemoglobin 15.8 g/dL (14.0-18.0); Mean Corpuscular Hemoglobin 30.4 pg (25-34); Mean Corpuscular Hgb Conc 34.1 g/dL (32-36); Mean Corpuscular Volume 89.4 fL (80-100); Mean Platelet Volume 10.2 fL (7.4-10.4); Platelet Count 410 K/uL (130-400); RDW Coefficient of Variation 14.1 % (11.5-14.5); RDW Standard Deviation 46.2 fL (36.4-46.3); Red Blood Count 5.19 M/uL (4.7-6.1); White Blood Count 15.23 K/uL (4.8-10.8)
[2021-03-20 07:01] LABS: BUN Creatinine Ratio 21.2 (10-20); Calcium 9.9 mg/dl (8.5-10.1); Creatinine Clr Calc Pharmacy 79.8 ml/min; Est GFR (African American) 78.1 ml/min; Est GFR (Non-African American) 67.4 ml/min; Potassium 4.7 mmol/L (3.5-5.1)
[2021-03-20] MEDS: DOXYCYCLINE HYCLATE 100 MG CAP PO SCH (09:01)
[2021-03-20] MEDS: ASPIRIN 81 MG CHEW PO SCH (09:01)
[2021-03-20] MEDS: METOPROLOL TARTRATE 25 MG TAB PO SCH ×2 (09:01→20:17)
[2021-03-20] MEDS: TICAGRELOR 90 MG TAB PO SCH ×2 (09:01→20:17)
[2021-03-20] MEDS: dexAMETHasone 10 MG in SYRINGE 0 ML IV SCH (09:01)
[2021-03-20] MEDS: PANTOprazole 40 MG TAB PO SCH (09:01)
[2021-03-20] MEDS: ATORVASTATIN 40 MG TAB PO SCH (09:01)
[2021-03-20] MEDS: ENOXAPARIN INJ 40 MG/0.4 ML SYR SQ SCH (18:49)
--- NOTE | 2021-03-20 23:42 | Hospitalist Progress Note ---
Date of Service March 20, 2021 Assessment & Plan (1) Acute respiratory failure with hypoxia: (2) Pneumonia due to COVID-19 virus: Plan: Tested positive for COVID-19 CXR showed Interval development of bilateral opacities and progression of interstitial thickening consistent suggestive of viral pneumonia. CTA showed no pulmonary emboli identified. Extensive airspace opacities throughout the lungs with multifocal consolidation and groundglass opacities. Continue oxygen supplementation Continue incentive spirometry and flutter valve Previous hospitalist team discussed with Primary Care Physician Dr Vines who recommended increasing remaining doses of dexamethasone to 10mg and to add atypical coverage since his scans suggests possible COPD Baricitinib was discontinued to due elevated LFT. Continue doxycycline We will consider to give Lasix 20 mg IV x1 Continue to wean oxygen as tolerated Encourage patient to continue to prone (3) C3 cervical fracture: Plan: Patient had a syncopal episode and was seen in the ER on 03/09/2021. Was found to have a cervical fracture and was planned to follow-up with Ortho outpatient. Spine Ortho consult appreciated. Continue to maintain cervical collar at all times. Dr. Ferguson's recommendation. If patient requires intubation will need to be done with the glide scope or fiberoptic maintain cervical alignment and to maintain cervical collar if intubated (4) CAD (coronary artery disease): Plan: Appears stable, no reports of chest pain Continue ASA, Brilinta, beta-ruby, statin Elevated liver enzyme Baricitinib was discontinued Liver enzymes trending down If liver enzyme continue to trend, will hold on statin Continue monitor (5) DVT prophylaxis: Plan: SQ Lovenox CODE STATUS Full code Admission and Anticipated Discharge Date Admission Date: March 13, 2021 Subjective Patient was seen and examined for follow-up of shortness of breath due to COVID-19 Lying in bed with no acute distress Patient said his breathing feels much better still requiring 50% high flow oxygen Denies any chest pain, palpitation, dizziness, and fever. Review of Systems Review of Systems: All systems reviewed & are unremarkable except as noted in Subjective Physical Exam Physical Exam: General- No acute distress Head- atraumatic Eyes- PERRL, EOMI, ENT- oropharynx clear Neck- supple, no JVD Lungs-+ LUNGS: Breath sounds equal, no wheezes, rales, or rhonchi heard. No tachypnea or dyspnea. Diminished breath sounds Heart- regular rhythm; no murmur Abdomen- normal bowel sounds, soft, nontender Extremities- no calf tenderness Neuro- alert, oriented x 3; PERRL, EOMI; no facial palsy; no dysarthria Skin- warm & dry Results & Data Results & Data ([facility]) Vital Signs (Past 12 Hours) Vital Signs Temp Pulse Pulse Resp BP Pulse Ox 03/20/21 23:00 36.8 C 65 16 122/58 L 90 03/20/21 19:21 36.8 C 78 16 124/87 90 03/20/21 15:11 37.0 C 76 21 103/66 94 (1) C3 cervical fracture Encounter type: initial encounter Fracture alignment: displaced Fracture morphology: unspecified fracture morphology Fracture type: closed Qualified Code(s): S12.200A - Unspecified displaced fracture of third cervical vertebra, initial encounter for closed fracture
[2021-03-21] MEDS ORDERED: FUROSEMIDE INJ 20 MG/2 ML VIAL IV ONE ×3 (00:10→18:15)
[2021-03-21 07:11] LABS: Albumin Level 2.2 gm/dl (3.4-5.0); BUN Creatinine Ratio 25.1 (10-20); Bilirubin Direct 0.2 mg/dl (0-0.2); Calcium 9.2 mg/dl (8.5-10.1); Est GFR (African American) 93.3 ml/min; Est GFR (Non-African American) 80.5 ml/min; Potassium 4.6 mmol/L (3.5-5.1)
[2021-03-21 07:27] LABS: Albumin Globulin Ratio 0.3 (0.9-2); Bilirubin,Total 0.7 mg/dl (0.2-1); C Reactive Protein 10.4 mg/dl (0-0.29); Ferritin 1991.5 ng/ml (8-388); Globulin 6.3 gm/dl (2.5-4.0); Total Protein 8.5 gm/dl (6.4-8.2)
[2021-03-21] MEDS: dexAMETHasone 10 MG in SYRINGE 0 ML IV SCH (08:20)
[2021-03-21] MEDS: ASPIRIN 81 MG CHEW PO SCH (08:21)
[2021-03-21] MEDS: METOPROLOL TARTRATE 25 MG TAB PO SCH ×2 (08:21→20:09)
[2021-03-21] MEDS: PANTOprazole 40 MG TAB PO SCH (08:21)
[2021-03-21] MEDS: ATORVASTATIN 40 MG TAB PO SCH (08:21)
[2021-03-21] MEDS: TICAGRELOR 90 MG TAB PO SCH ×2 (08:21→20:10)
[2021-03-21] MEDS ORDERED: SODIUM CHLORIDE 0.65% NA SOLN 45 ML (OCEAN) STA (09:39)
[2021-03-21] MEDS ORDERED: SODIUM CHLORIDE 0.65% NA SOLN 45 ML (OCEAN) ONE (11:51)
[2021-03-21] MEDS: ENOXAPARIN INJ 40 MG/0.4 ML SYR SQ SCH (17:33)
--- NOTE | 2021-03-21 23:45 | Hospitalist Progress Note ---
Date of Service March 21, 2021 Assessment & Plan (1) Acute respiratory failure with hypoxia: (2) Pneumonia due to COVID-19 virus: Plan: Tested positive for COVID-19 CXR showed Interval development of bilateral opacities and progression of interstitial thickening consistent suggestive of viral pneumonia. CTA showed no pulmonary emboli identified. Extensive airspace opacities throughout the lungs with multifocal consolidation and groundglass opacities. Continue oxygen supplementation Continue incentive spirometry and flutter valve Previous hospitalist team discussed with Butadiene Converter Utility Operator Dr Vines who recommended increasing remaining doses of dexamethasone to 10mg and to add atypical coverage since his scans suggests possible COPD Baricitinib was discontinued to due elevated LFT. Continue doxycycline Additional Lasix 20 mg given today x1 Continue to wean oxygen as tolerated Encourage patient to continue to prone Continue to wean off oxygen, currently on 11 L nasal cannula Continue monitor closely (3) C3 cervical fracture: Plan: Patient had a syncopal episode and was seen in the ER on 03/09/2021. Was found to have a cervical fracture and was planned to follow-up with Ortho outpatient. Spine Ortho consult appreciated. Continue to maintain cervical collar at all times. Dr. Ferguson's recommendation. If patient requires intubation will need to be done with the glide scope or fiberoptic maintain cervical alignment and to maintain cervical collar if intubated (4) CAD (coronary artery disease): Plan: Appears stable, no reports of chest pain Continue ASA, Brilinta, beta-ruby, statin Daughters requested cardiology consult because her dad had hx CAD even though reassuring her there is no additional cardiac testing needed Cardiology consult Elevated liver enzyme Baricitinib was discontinued Liver enzymes trending down If liver enzyme continue to trend, will hold on statin Continue monitor (5) DVT prophylaxis: Plan: SQ Lovenox CODE STATUS Full code Admission and Anticipated Discharge Date Admission Date: March 13, 2021 Subjective Patient was seen and examined for follow-up of shortness of breath due to COVID- 19 Lying in bed with no acute distress Patient said his breathing feels much better Currently he is on 11 L oxygen supplement Spoke to both daughters over the phone today, provided with updates and answer all questions Daughters requested cardiology consult because her dad had hx CAD even though reassuring her there is no additional cardiac testing needed Denies any chest pain, palpitation, dizziness, and fever. Review of Systems Review of Systems: All systems reviewed & are unremarkable except as noted in Subjective Physical Exam Physical Exam: General- No acute distress Head- atraumatic Eyes- PERRL, EOMI, ENT- oropharynx clear Neck- supple, no JVD Lungs-+ Diminished breath sounds Heart- regular rhythm; no murmur Abdomen- normal bowel sounds, soft, nontender Extremities- no calf tenderness Neuro- alert, oriented x 3; PERRL, EOMI; no facial palsy; no dysarthria Skin- warm & dry Results & Data Results & Data ([facility]) Vital Signs (Past 12 Hours) Vital Signs Temp Pulse Pulse Resp BP BP Pulse Ox 03/21/21 23:15 64 03/21/21 22:51 36.8 C 75 18 108/61 92 03/21/21 19:22 36.8 C 80 15 138/60 91 03/21/21 15:07 36.8 C 94 H 20 104/76 89 L (1) C3 cervical fracture Encounter type: initial encounter Fracture alignment: displaced Fracture morphology: unspecified fracture morphology Fracture type: closed Qualified Code(s): S12.200A - Unspecified displaced fracture of third cervical vertebra, initial encounter for closed fracture
[2021-03-22 08:12] LABS: Albumin Level 2.1 gm/dl (3.4-5.0); BUN Creatinine Ratio 30.1 (10-20); C Reactive Protein 11.5 mg/dl (0-0.29); Calcium 9.4 mg/dl (8.5-10.1); Creatinine Clr Calc Pharmacy 103.4 ml/min; Est GFR (African American) 108.7 ml/min; Est GFR (Non-African American) 93.8 ml/min; Potassium 4.2 mmol/L (3.5-5.1)
[2021-03-22 08:17] LABS: Albumin Globulin Ratio 0.3 (0.9-2); Bilirubin,Total 0.7 mg/dl (0.2-1); Ferritin 1753.5 ng/ml (8-388); Globulin 6.3 gm/dl (2.5-4.0); Total Protein 8.4 gm/dl (6.4-8.2)
[2021-03-22] MEDS: dexAMETHasone 10 MG in SYRINGE 0 ML IV SCH (09:19)
[2021-03-22] MEDS: METOPROLOL TARTRATE 25 MG TAB PO SCH ×2 (09:20→19:23)
[2021-03-22] MEDS: ATORVASTATIN 40 MG TAB PO SCH (09:20)
[2021-03-22] MEDS: PANTOprazole 40 MG TAB PO SCH (09:20)
[2021-03-22] MEDS: ASPIRIN 81 MG CHEW PO SCH (09:20)
[2021-03-22] MEDS: TICAGRELOR 90 MG TAB PO SCH ×2 (09:20→19:23)
--- NOTE | 2021-03-22 14:30 | Cardiology Consultation ---
Date of Consultation March 22, 2021 Assessment & Plan (1) CAD (coronary artery disease): [facility] in coverage of to Dr. Lai. He has been treated for SARS-CoV-2 related pneumonia with underlying COPD. From a cardiac perspective he is asymptomatic. He denies chest discomfort. His most recent outpatient cardiology follow-up visit had been in 2019. There had been discussion with regards to discontinuing his dual antiplatelet therapy at the 1 year nery, with his initial index event having been in January,. The patient however remains on aspirin and Brilinta, and at present in the setting of his acute illness, I think it is most prudent to continue his aspirin and Brilinta. He is on Lovenox for DVT prophylaxis. Continue his other chronic outpatient cardiac medications including atorvastatin, metoprolol. As noted, with use of his corticosteroids, he may need an occasional dose of furosemide to keep his intake and output even and to avoid volume overload. History of Present Illness Attending Physician: Jimmie Hanks MD History of Present Illness Korey Shields is a 60-year-old male seen in cardiology consultation per the request of Dr. Hanks, per patient/spouse request given his history of coronary heart disease. The patient's primary station baggage agent is Dr. Frank Lai of [facility]. Per review of record, the patient's cardiac history dates back to 01/30/2018 when he presented to the emergency department with chest discomfort and was found to have an inferior ST segment elevation myocardial infarction. Emergent cardiac catheterization was performed and he was found to have a 100% occlusion of the distal left circumflex coronary artery which was treated with PCI and drug- eluting stent. Echocardiogram during that index hospitalization revealed low normal LVEF in the range of 50 to 54%. The patient has been doing well from a cardiac perspective and remains on dual antiplatelet therapy with aspirin and Brilinta. He presented to [facility] on 03/13/2021 with shortness of breath and a cough having been diagnosed with COVID-19 1 week previously. On 03/09/2021 the patient had a fall with a C3 fracture.He was seen by spine surgery, and his cervical spine collar has since been removed. The patient remains hospitalized for SARS-CoV-2 related pneumonia, and remains hypoxic with necessity of supplementation with 6 L oxygen by nasal cannula to maintain oxygen saturation 94%. Allergies Allergy/AdvReac Type Severity Reaction Status Date / Time No Known Allergies Allergy Verified 03/13/21 14:27 Home Medications Medication Instructions Recorded Confirmed Type omeprazole 20 mg capsule,delayed 20 mg PO QAM 01/30/18 03/13/21 History release acetaminophen 500 mg tablet 1,000 mg PO Q6H PRN #60 tab MDD 6 02/01/18 03/13/21 Rx (Tylenol Extra Strength) pills a day nitroglycerin 0.4 mg sublingual 0.4 mg SUBLINGUAL Q5M #25 tab 02/01/18 03/13/21 Rx tablet (Nitrostat) atorvastatin 40 mg tablet 40 mg PO QAM tab 12/14/18 03/13/21 History metoprolol tartrate 25 mg tablet 25 mg PO BID #180 tab 02/15/19 03/13/21 Rx ticagrelor 90 mg tablet (Brilinta) 90 mg PO BID 03/09/21 03/13/21 History aspirin 81 mg chewable tablet 81 mg PO QAM 03/13/21 03/13/21 History diclofenac sodium 75 mg 75 mg PO BID 03/13/21 03/13/21 History tablet,delayed release Patient History Medical History Arthritis CAD (coronary artery disease) 2016-NSTEMI s/p IVONNE to distal left circumflex Diverticular disease GERD (gastroesophageal reflux disease) HTN (hypertension) Hyperlipidemia Morbid obesity with BMI of 40.0-44.9, adult NSTEMI (non-ST elevated myocardial infarction) 01/2017--follows with Dr. Lai--reason for Brilinta Pyloric stenosis Spinal stenosis Surgical History History of appendectomy History of cardiac cath 01/2017 @ [facility] with 1 stent placed History of carpal tunnel surgery of right wrist History of colonoscopy with polypectomy History of heart artery stent 01/2017 1 placed History of tonsillectomy History of wisdom tooth extraction Family History Other Heart disease No family history of adverse response to anesthesia Social History Smoking Status: Former smoker Tobacco Type: Cigarettes Cigarettes Per Day: 3-4 a day; Second Hand Exposure: No; Do You Dip or Chew Tobacco: No; Tobacco Cessation Education Requested by Patient: No Hx Alcohol Use: Yes Alcohol type: beer Hx Substance Use: No Preferred Language: Divehi Communication Ability: Effective Hairpiece Stylist Required: No Beliefs That Will Affect Care: None Current Living Situation: Family Current Living Situation Comment: Lives with daughter Other Information That Helps Us Care for You: No Feels Safe at Home: Yes Safety Concerns: Feels Safe At This Time Assistive Devices: Glasses and Oxygen - Continuous Review of Systems Review of Systems: All systems reviewed & are unremarkable except as noted in HPI & below Physical Exam Constitutional: no acute distress Neurologic: Conversant Results & Data ([place]) Vital Signs (Past 12 Hours) Vital Signs Temp Pulse Resp BP Pulse Ox 03/22/21 12:11 36.7 C 82 20 124/55 L 94 03/22/21 07:24 36.8 C 103 H 20 130/77 86 L 03/22/21 03:34 36.9 C 81 17 118/54 L 91 Diagnostic Findings Summary of radiology report, CT angiogram 03/13/2021: No pulmonary emboli identified. Extensive airspace opacities throughout the lungs with multifocal consolidation and groundglass opacities consistent with viral pneumonia. Emphysema. EKG performed 03/09/2021 and reviewed independently: Normal sinus rhythm at 70 bpm, normal EKG. EKG performed 03/13/2021, 1338 and reviewed independently: Sinus rhythm at 96 bpm with occasional PVCs, no significant repolarization changes.
--- NOTE | 2021-03-22 16:35 | Hospitalist Progress Note ---
Date of Service March 22, 2021 Assessment & Plan (1) Acute respiratory failure with hypoxia: (2) Pneumonia due to COVID-19 virus: Plan: Tested positive for COVID-19 CXR showed Interval development of bilateral opacities and progression of interstitial thickening consistent suggestive of viral pneumonia. CTA showed no pulmonary emboli identified. Extensive airspace opacities throughout the lungs with multifocal consolidation and groundglass opacities. Continue oxygen supplementation Continue incentive spirometry and flutter valve Previous hospitalist team discussed with Mechanical Engineering Advisor Dr Vines who recommended increasing remaining doses of dexamethasone to 10mg and to add atypical coverage since his scans suggests possible COPD Baricitinib was discontinued to due elevated LFT. Continue doxycycline has been given prn Continue to wean oxygen as tolerated Encourage patient to continue to prone Continue to wean off oxygen, currently on 6 L nasal cannula PT/OT eval Will consider to get a 2step exercise in am (3) C3 cervical fracture: Plan: Patient had a syncopal episode and was seen in the ER on 03/09/2021. Was found to have a cervical fracture and was planned to follow-up with Ortho outpatient. Spine Ortho consult appreciated. Continue to maintain cervical collar at all times. Dr. Ferguson's recommendation. If patient requires intubation will need to be done with the glide scope or fiberoptic maintain cervical alignment and to maintain cervical collar if intubated (4) CAD (coronary artery disease): Plan: Appears stable, no reports of chest pain Continue ASA, Brilinta, beta-ruby, statin Daughters requested cardiology consult because her dad had hx CAD even though reassuring her there is no additional cardiac testing needed Cardiology consulted No additional testing needed Continue outpatient medication Elevated liver enzyme Baricitinib was discontinued Liver enzymes continue trending down If liver enzyme continue to trend, will hold on statin Continue monitor (5) DVT prophylaxis: Plan: SQ Lovenox CODE STATUS Full code Disposition Spoke to both daughters over the phone on the night of 03/21 and provided with updates Admission and Anticipated Discharge Date Admission Date: March 13, 2021 Subjective Patient was seen and examined for follow-up of shortness of breath due to COVID- 19 Lying in bed with no acute distress Patient said his breathing feels much better Currently he is on 6 L oxygen supplement He said that he feels fine Denies any chest pain, palpitation, dizziness, and fever. Review of Systems Review of Systems: All systems reviewed & are unremarkable except as noted in Subjective Physical Exam Physical Exam: General- No acute distress Head- atraumatic Eyes- PERRL, EOMI, ENT- oropharynx clear Neck- supple, no JVD Lungs-+ Diminished breath sounds Heart- regular rhythm; no murmur Abdomen- normal bowel sounds, soft, nontender Extremities- no calf tenderness Neuro- alert, oriented x 3; PERRL, EOMI; no facial palsy; no dysarthria Skin- warm & dry Results & Data Results & Data ([facility]) Vital Signs (Past 12 Hours) Vital Signs Temp Pulse Resp BP Pulse Ox 03/22/21 15:42 36.7 C 67 19 124/74 88 L 03/22/21 12:11 36.7 C 82 20 124/55 L 94 03/22/21 07:24 36.8 C 103 H 20 130/77 86 L (1) C3 cervical fracture Encounter type: initial encounter Fracture alignment: displaced Fracture morphology: unspecified fracture morphology Fracture type: closed Qualified Code(s): S12.200A - Unspecified displaced fracture of third cervical vertebra, initial encounter for closed fracture
[2021-03-22] MEDS: ENOXAPARIN INJ 40 MG/0.4 ML SYR SQ SCH (18:56)
[2021-03-23 06:22] LABS: Hemoglobin 14.8 g/dL (14.0-18.0); Mean Corpuscular Hemoglobin 30.1 pg (25-34); Mean Corpuscular Hgb Conc 34.4 g/dL (32-36); Mean Corpuscular Volume 87.6 fL (80-100); Mean Platelet Volume 10.4 fL (7.4-10.4); Platelet Count 461 K/uL (130-400); RDW Coefficient of Variation 13.9 % (11.5-14.5); RDW Standard Deviation 44.7 fL (36.4-46.3); Red Blood Count 4.91 M/uL (4.7-6.1); White Blood Count 17.36 K/uL (4.8-10.8)
[2021-03-23 07:05] LABS: BUN Creatinine Ratio 28.3 (10-20); Blood Urea Nitrogen 26 mg/dl (7-18); Calcium 9.5 mg/dl (8.5-10.1); Carbon Dioxide 25 mmol/L (21-32); Chloride 98 mmol/L (98-107); Creatinine Clr Calc Pharmacy 99.3 ml/min; Est GFR (African American) 105.8 ml/min; Est GFR (Non-African American) 91.3 ml/min; Glucose 117 mg/dl (70-99); Sodium 133 mmol/L (136-145)
[2021-03-23] MEDS ORDERED: FUROSEMIDE INJ 20 MG/2 ML VIAL IV ONE (09:00)
[2021-03-23] MEDS: METOPROLOL TARTRATE 25 MG TAB PO SCH ×2 (09:08→19:51)
[2021-03-23] MEDS: dexAMETHasone 10 MG in SYRINGE 0 ML IV SCH (09:08)
[2021-03-23] MEDS: TICAGRELOR 90 MG TAB PO SCH ×2 (09:08→19:51)
[2021-03-23] MEDS: PANTOprazole 40 MG TAB PO SCH (09:09)
[2021-03-23] MEDS: ASPIRIN 81 MG CHEW PO SCH (09:09)
[2021-03-23] MEDS: ATORVASTATIN 40 MG TAB PO SCH (09:09)
--- NOTE | 2021-03-23 18:01 | Hospitalist Progress Note ---
Date of Service March 23, 2021 Assessment & Plan (1) Acute respiratory failure with hypoxia: (2) Pneumonia due to COVID-19 virus: Plan: Tested positive for COVID-19 CXR showed Interval development of bilateral opacities and progression of interstitial thickening consistent suggestive of viral pneumonia. CTA showed no pulmonary emboli identified. Extensive airspace opacities throughout the lungs with multifocal consolidation and groundglass opacities. Continue oxygen supplementation Continue incentive spirometry and flutter valve Previous hospitalist team discussed with Industrial Order Clerk Dr Vines who recommended increasing remaining doses of dexamethasone to 10mg and to add atypical coverage since his scans suggests possible COPD Baricitinib was discontinued to due elevated LFT. Continue to wean oxygen as tolerated Encourage patient to continue to prone Continue to wean off oxygen, currently on 6 L nasal cannula PT/OT eval Will consider to get a 2step exercise in am (3) C3 cervical fracture: Plan: Patient had a syncopal episode and was seen in the ER on 03/09/2021. Was found to have a cervical fracture and was planned to follow-up with Ortho outpatient. Spine Ortho consult appreciated. Continue to maintain cervical collar at all times. Dr. Ferguson's recommendation. If patient requires intubation will need to be done with the glide scope or fiberoptic maintain cervical alignment and to maintain cervical collar if intubated (4) CAD (coronary artery disease): Plan: Appears stable, no reports of chest pain Continue ASA, Brilinta, beta-ruby, statin Daughters requested cardiology consult because her dad had hx CAD even though reassuring her there is no additional cardiac testing needed Cardiology consulted No additional testing needed Continue outpatient medication Elevated liver enzyme Baricitinib was discontinued Liver enzymes continue trending down If liver enzyme continue to trend, will hold on statin Continue monitor (5) DVT prophylaxis: Plan: SQ Lovenox CODE STATUS Full code Disposition Spoke to both daughters over the phone on the night of 03/21 and provided with updates Admission and Anticipated Discharge Date Admission Date: March 13, 2021 Subjective Patient was seen and examined for follow-up of shortness of breath due to COVID- 19 Sitting at the edge of the bed with no acute distress eating dinner Patient said his breathing feels much better today Nurse said earlier he tried to make patient walk in the hallway his oxygen saturation dropped in the lo 70s Patient said that he became very weak when his oxygen dropped in the low 70s Denies any chest pain, palpitation, dizziness, and fever. Review of Systems Review of Systems: All systems reviewed & are unremarkable except as noted in Subjective Physical Exam Physical Exam: General- No acute distress Head- atraumatic Eyes- PERRL, EOMI, ENT- oropharynx clear Neck- supple, no JVD Lungs-+ Diminished breath sounds Heart- regular rhythm; no murmur Abdomen- normal bowel sounds, soft, nontender Extremities- no calf tenderness Neuro- alert, oriented x 3; PERRL, EOMI; no facial palsy; no dysarthria Skin- warm & dry Results & Data Results & Data ([facility]) Vital Signs (Past 12 Hours) Vital Signs Temp Pulse Resp BP Pulse Ox 03/23/21 12:10 36.8 C 84 24 115/76 93 (1) C3 cervical fracture Encounter type: initial encounter Fracture alignment: displaced Fracture morphology: unspecified fracture morphology Fracture type: closed Qualified Code(s): S12.200A - Unspecified displaced fracture of third cervical vertebra, initial encounter for closed fracture
[2021-03-24] MEDS: PANTOprazole 40 MG TAB PO SCH (09:11)
[2021-03-24] MEDS: TICAGRELOR 90 MG TAB PO SCH ×2 (09:11→23:41)
[2021-03-24] MEDS: ATORVASTATIN 40 MG TAB PO SCH (09:11)
[2021-03-24] MEDS: ASPIRIN 81 MG CHEW PO SCH (09:11)
[2021-03-24] MEDS: METOPROLOL TARTRATE 25 MG TAB PO SCH ×2 (09:11→19:46)
[2021-03-24] MEDS ORDERED: FUROSEMIDE INJ 20 MG/2 ML VIAL IV ONE (16:27)
--- NOTE | 2021-03-24 16:35 | Hospitalist Progress Note ---
Date of Service March 24, 2021 Assessment & Plan (1) Acute respiratory failure with hypoxia: (2) Pneumonia due to COVID-19 virus: Plan: Tested positive for COVID-19 CXR showed Interval development of bilateral opacities and progression of interstitial thickening consistent suggestive of viral pneumonia. CTA showed no pulmonary emboli identified. Extensive airspace opacities throughout the lungs with multifocal consolidation and groundglass opacities. Continue oxygen supplementation Continue incentive spirometry and flutter valve Previous hospitalist team discussed with Integrated Circuit Ic Layout Designer Dr Vines who recommended increasing remaining doses of dexamethasone to 10mg and to add atypical coverage since his scans suggests possible COPD Baricitinib was discontinued to due elevated LFT. Continue to wean oxygen as tolerated Encourage patient to continue to prone Continue to wean off oxygen Early today he was on4L NC, but it was increased to 8L NC when therapy tried to walk with her Continue oxygen supplement therapy to keep oxygen sat above 90 % Will give lasix 20mg IVx1 today PT/OT eval Will consider to get a 2step exercise in am (3) C3 cervical fracture: Plan: Patient had a syncopal episode and was seen in the ER on 03/09/2021. Was found to have a cervical fracture and was planned to follow-up with Ortho outpatient. Spine Ortho consult appreciated. Ortho recommended to continue to maintain cervical collar at all times. If patient requires intubation will need to be done with the glide scope or fiberoptic maintain cervical alignment and to maintain cervical collar if intubated Pt has been non complaint and refused to wear the cervical collar (4) CAD (coronary artery disease): Plan: Appears stable, no reports of chest pain Continue ASA, Brilinta, beta-ruby, statin Daughters requested cardiology consult because her dad had hx CAD even though reassuring her there is no additional cardiac testing needed Cardiology consulted No additional testing needed Continue outpatient medication Elevated liver enzyme Baricitinib was discontinued Liver enzymes continue trending down If liver enzyme continue to trend, will hold on statin Continue monitor (5) DVT prophylaxis: Plan: SQ Lovenox CODE STATUS Full code Disposition Spoke to both daughters over the phone few days ago and provided with updates Admission and Anticipated Discharge Date Admission Date: March 13, 2021 Subjective Patient was seen and examined for follow-up of shortness of breath due to COVID- 19 Sitting in the chair with no acute distress watching TV Patient said his breathing feels good but earlier today when he tried to walk with therapy his oxygen level dropped in the 60s Denies any chest pain, palpitation, dizziness, and fever. Review of Systems Review of Systems: All systems reviewed & are unremarkable except as noted in Subjective Physical Exam Physical Exam: General- No acute distress Head- atraumatic Eyes- PERRL, EOMI, ENT- oropharynx clear Neck- supple, no JVD Lungs-+ Diminished breath sounds Heart- regular rhythm; no murmur Abdomen- normal bowel sounds, soft, nontender Extremities- no calf tenderness Neuro- alert, oriented x 3; PERRL, EOMI; no facial palsy; no dysarthria Skin- warm & dry Results & Data Results & Data ([facility]) Vital Signs (Past 12 Hours) Vital Signs Temp Pulse Resp BP Pulse Ox 03/24/21 15:02 36.7 C 104 H 21 100/81 93 03/24/21 14:37 69 L 03/24/21 11:28 36.7 C 88 18 103/57 L 90 03/24/21 07:43 36.5 C 87 19 121/66 91 (1) C3 cervical fracture Encounter type: initial encounter Fracture alignment: displaced Fracture morphology: unspecified fracture morphology Fracture type: closed Qualified Code(s): S12.200A - Unspecified displaced fracture of third cervical vertebra, initial encounter for closed fracture
[2021-03-24] MEDS: ENOXAPARIN INJ 40 MG/0.4 ML SYR SQ SCH (18:03)
[2021-03-25 09:01] LABS: BUN Creatinine Ratio 30.5 (10-20); Calcium 8.7 mg/dl (8.5-10.1); Creatinine Clr Calc Pharmacy 104.8 ml/min; Est GFR (African American) 109.8 ml/min; Est GFR (Non-African American) 94.7 ml/min; Potassium 3.8 mmol/L (3.5-5.1)
[2021-03-25 09:07] LABS: C Reactive Protein 9.75 mg/dl (0-0.29); Ferritin 1485.2 ng/ml (8-388)
[2021-03-25] MEDS: ATORVASTATIN 40 MG TAB PO SCH (09:12)
[2021-03-25] MEDS: PANTOprazole 40 MG TAB PO SCH (09:12)
[2021-03-25] MEDS: METOPROLOL TARTRATE 25 MG TAB PO SCH ×2 (09:12→19:43)
[2021-03-25] MEDS: ASPIRIN 81 MG CHEW PO SCH (15:10)
[2021-03-25] MEDS: TICAGRELOR 90 MG TAB PO SCH (15:10)
[2021-03-25] MEDS: ENOXAPARIN INJ 40 MG/0.4 ML SYR SQ SCH (19:15)
--- NOTE | 2021-03-25 20:05 | Hospitalist Progress Note ---
Date of Service March 25, 2021 Assessment & Plan (1) Acute respiratory failure with hypoxia: (2) Pneumonia due to COVID-19 virus: Plan: Tested positive for COVID-19 CXR showed Interval development of bilateral opacities and progression of interstitial thickening consistent suggestive of viral pneumonia. CTA showed no pulmonary emboli identified. Extensive airspace opacities throughout the lungs with multifocal consolidation and groundglass opacities. Continue oxygen supplementation Continue incentive spirometry and flutter valve Previous hospitalist team discussed with Used Building Materials Yard Worker Dr Vines who recommended increasing remaining doses of dexamethasone to 10mg and to add atypical coverage since his scans suggests possible COPD Baricitinib was discontinued to due elevated LFT. Continue to wean oxygen as tolerated Encourage patient to continue to prone Continue to wean off oxygen Early today he was on4L NC, but it was increased to 8L NC when therapy tried to walk with her Continue oxygen supplement therapy to keep oxygen sat above 90 % Inflammatory markers trending down with ferritin 1485, CRP 9.75, but ESR remains above 130 Mild none okay (: to give lasix 20mg IVx1 today Will continue to encourage pt to prone PT/OT eval Will consider to get a 2step exercise in am (3) C3 cervical fracture: Plan: Patient had a syncopal episode and was seen in the ER on 03/09/2021. Was found to have a cervical fracture and was planned to follow-up with Ortho outpatient. Spine Ortho consult appreciated. Ortho recommended to continue to maintain cervical collar at all times. If patient requires intubation will need to be done with the glide scope or fiberoptic maintain cervical alignment and to maintain cervical collar if intubated Pt has been non complaint and refused to wear the cervical collar (4) CAD (coronary artery disease): Plan: Appears stable, no reports of chest pain Continue ASA, Brilinta, beta-ruby, statin Daughters requested cardiology consult because her dad had hx CAD even though reassuring her there is no additional cardiac testing needed Cardiology consulted No additional testing needed Continue outpatient medication Elevated liver enzyme Baricitinib was discontinued Liver enzymes continue trending down If liver enzyme continue to trend, will hold on statin Continue monitor (5) DVT prophylaxis: Plan: SQ Lovenox CODE STATUS Full code Disposition Spoke to both daughters over the phone few days ago and provided with updates Admission and Anticipated Discharge Date Admission Date: March 13, 2021 Subjective Patient was seen and examined for follow-up of shortness of breath due to COVID- 19 Lying in bed with no acute distress talking on the phone Patient said that he has been proning Denies any chest pain, palpitation, dizziness, and fever. Review of Systems Review of Systems: All systems reviewed & are unremarkable except as noted in Subjective Physical Exam Physical Exam: General- No acute distress Head- atraumatic Eyes- PERRL, EOMI, ENT- oropharynx clear Neck- supple, no JVD Lungs-+ Diminished breath sounds Heart- regular rhythm; no murmur Abdomen- normal bowel sounds, soft, nontender Extremities- no calf tenderness Neuro- alert, oriented x 3; PERRL, EOMI; no facial palsy; no dysarthria Skin- warm & dry Results & Data Results & Data ([facility]) Vital Signs (Past 12 Hours) Vital Signs Temp Pulse Resp BP Pulse Ox 03/25/21 19:37 36.8 C 87 18 104/51 L 93 03/25/21 15:14 36.6 C 81 19 102/56 L 92 03/25/21 11:04 36.8 C 103 H 19 101/67 95 (1) C3 cervical fracture Encounter type: initial encounter Fracture alignment: displaced Fracture morphology: unspecified fracture morphology Fracture type: closed Qualified Code(s): S12.200A - Unspecified displaced fracture of third cervical vertebra, initial encounter for closed fracture
[2021-03-25] MEDS ORDERED: POTASSIUM CHLORIDE 10 MEQ TABCR PO STA (20:34)
[2021-03-25] MEDS: FUROSEMIDE INJ 20 MG/2 ML VIAL IV ONE ×2 (21:03→22:14)
[2021-03-26] MEDS: METOPROLOL TARTRATE 25 MG TAB PO SCH ×2 (08:17→20:28)
[2021-03-26] MEDS: PANTOprazole 40 MG TAB PO SCH (08:18)
[2021-03-26] MEDS: ATORVASTATIN 40 MG TAB PO SCH (08:18)
[2021-03-26] MEDS: ASPIRIN 81 MG CHEW PO SCH (08:18)
[2021-03-26] MEDS: ENOXAPARIN INJ 40 MG/0.4 ML SYR SQ SCH (17:14)
--- NOTE | 2021-03-26 22:48 | Hospitalist Progress Note ---
Date of Service March 26, 2021 Assessment & Plan (1) Acute respiratory failure with hypoxia: (2) Pneumonia due to COVID-19 virus: Plan: Tested positive for COVID-19 CXR showed Interval development of bilateral opacities and progression of interstitial thickening consistent suggestive of viral pneumonia. CTA showed no pulmonary emboli identified. Extensive airspace opacities throughout the lungs with multifocal consolidation and groundglass opacities. Continue oxygen supplementation Continue incentive spirometry and flutter valve Previous hospitalist team discussed with Environmental Remediation Consultant Dr Vines who recommended increasing remaining doses of dexamethasone to 10mg and to add atypical coverage since his scans suggests possible COPD Baricitinib was discontinued to due elevated LFT. Continue to wean oxygen as tolerated Encourage patient to continue to prone Continue oxygen supplement therapy to keep oxygen sat above 90 % Inflammatory markers trending down with ferritin 1485, CRP 9.75, but ESR remains above 130 Will consider to give lasix 20mg IVx1 today Continue to encourage pt to prone Will consider to get a 2step exercise on discharge (3) C3 cervical fracture: Plan: Patient had a syncopal episode and was seen in the ER on 03/09/2021. Was found to have a cervical fracture and was planned to follow-up with Ortho outpatient. Spine Ortho consult appreciated. Ortho recommended to continue to maintain cervical collar at all times. If patient requires intubation will need to be done with the glide scope or fiberoptic maintain cervical alignment and to maintain cervical collar if intubated Pt has been non complaint and refused to wear the cervical collar. Ortho Dr. Ferguson was notified (4) CAD (coronary artery disease): Plan: Appears stable, no reports of chest pain Continue ASA, Brilinta, beta-ruby, statin Daughters requested cardiology consult because her dad had hx CAD even though reassuring her there is no additional cardiac testing needed Cardiology consulted No additional testing needed Continue outpatient medication Elevated liver enzyme Baricitinib was discontinued Liver enzymes continue trending down If liver enzyme continues to trend, will hold on statin Continue monitor (5) DVT prophylaxis: Plan: SQ Lovenox CODE STATUS Full code Disposition Spoke to both daughters over the phone few days ago and provided with updates Admission and Anticipated Discharge Date Admission Date: March 13, 2021 Subjective Patient was seen and examined for follow-up of shortness of breath due to COVID- 19 Lying in bed with no acute distress Currently on 2L NC at rest, but when he tried to Ambulate , his oxygen saturation dropped in the 60s denies any chest pain, palpitation, dizziness, and fever. Review of Systems Review of Systems: All systems reviewed & are unremarkable except as noted in Subjective Physical Exam Physical Exam: General- No acute distress Head- atraumatic Eyes- PERRL, EOMI, ENT- oropharynx clear Neck- supple, no JVD Lungs-+ Diminished breath sounds Heart- regular rhythm; no murmur Abdomen- normal bowel sounds, soft, nontender Extremities- no calf tenderness Neuro- alert, oriented x 3; PERRL, EOMI; no facial palsy; no dysarthria Skin- warm & dry Results & Data Results & Data ([facility]) Vital Signs (Past 12 Hours) Vital Signs Temp Pulse Resp BP Pulse Ox 03/26/21 19:36 36.8 C 71 18 104/55 L 93 03/26/21 15:41 36.9 C 74 18 104/56 L 92 03/26/21 12:04 93 03/26/21 11:05 36.7 C 83 19 116/54 L 92 (1) C3 cervical fracture Encounter type: initial encounter Fracture alignment: displaced Fracture morphology: unspecified fracture morphology Fracture type: closed Qualified Code(s): S12.200A - Unspecified displaced fracture of third cervical vertebra, initial encounter for closed fracture
[2021-03-27 06:29] LABS: Hematocrit (blood only) 38.3 % (42-52); Mean Corpuscular Hemoglobin 29.9 pg (25-34); Mean Corpuscular Hgb Conc 33.9 g/dL (32-36); Mean Platelet Volume 10.1 fL (7.4-10.4); Platelet Count 310 K/uL (130-400); RDW Coefficient of Variation 13.6 % (11.5-14.5); RDW Standard Deviation 44.6 fL (36.4-46.3); Red Blood Count 4.35 M/uL (4.7-6.1); White Blood Count 14.25 K/uL (4.8-10.8)
[2021-03-27 07:13] LABS: Albumin Globulin Ratio 0.3 (0.9-2); Albumin Level 1.8 gm/dl (3.4-5.0); BUN Creatinine Ratio 18.5 (10-20); Bilirubin,Total 0.4 mg/dl (0.2-1); C Reactive Protein 5.71 mg/dl (0-0.29); Calcium 9.1 mg/dl (8.5-10.1); Creatinine Clr Calc Pharmacy 107.6 ml/min; Est GFR (African American) 110.8 ml/min; Est GFR (Non-African American) 95.6 ml/min; Ferritin 1074.4 ng/ml (8-388); Globulin 5.8 gm/dl (2.5-4.0); Potassium 4.8 mmol/L (3.5-5.1); Total Protein 7.6 gm/dl (6.4-8.2)
[2021-03-27] MEDS: ASPIRIN 81 MG CHEW PO SCH (08:26)
[2021-03-27] MEDS: ATORVASTATIN 40 MG TAB PO SCH (08:26)
[2021-03-27] MEDS: METOPROLOL TARTRATE 25 MG TAB PO SCH ×2 (08:26→19:26)
[2021-03-27] MEDS: PANTOprazole 40 MG TAB PO SCH (08:27)
--- NOTE | 2021-03-27 13:20 | Hospitalist Progress Note ---
Date of Service March 27, 2021 Assessment & Plan (1) Acute respiratory failure with hypoxia: (2) Pneumonia due to COVID-19 virus: Plan: Tested positive for COVID-19 CXR showed Interval development of bilateral opacities and progression of interstitial thickening consistent suggestive of viral pneumonia. CTA showed no pulmonary emboli identified. Extensive airspace opacities throughout the lungs with multifocal consolidation and groundglass opacities. Continue oxygen supplementation Continue incentive spirometry and flutter valve Received remdesivir and dexamethasone Previous hospitalist team discussed with Automotive General Sales Manager Dr Vines who recommended increasing remaining doses of dexamethasone to 10mg and to add atypical coverage since his scans suggests possible COPD Baricitinib was discontinued to due elevated LFT. Encourage patient to continue to prone Continue oxygen supplement therapy to keep oxygen sat above 90 % Inflammatory markers trending down with ferritin 1485, CRP 9.75, but ESR remains above 130 Cumulative fluid balance is -10,000, will not give any more Lasix today Advised to ambulate in the room To do steps O2 saturation tomorrow and possible discharge tomorrow (3) C3 cervical fracture: Plan: Patient had a syncopal episode and was seen in the ER on 03/09/2021. Was found to have a cervical fracture and was planned to follow-up with Ortho outpatient. Spine Ortho consult appreciated. Ortho recommended to continue to maintain cervical collar at all times. If patient requires intubation will need to be done with the glide scope or fib eroptic maintain cervical alignment and to maintain cervical collar if intubated Pt has been non complaint and refused to wear the cervical collar. Ortho Dr. Ferguson was notified Denies any more pain in the neck (4) CAD (coronary artery disease): Plan: Appears stable, no reports of chest pain Continue ASA, Brilinta, beta-ruby, statin Daughters requested cardiology consult because her dad had hx CAD even though reassuring her there is no additional cardiac testing needed Cardiology consulted No additional testing needed Continue outpatient medication No cardiac symptoms Elevated liver enzyme Baricitinib was discontinued Liver enzymes continue trending down If liver enzyme continues to trend, will hold on statin Continue monitor -LFTs have been normalized with minimal increase in alkaline phosphatase at 150 (5) DVT prophylaxis: Plan: SQ Lovenox CODE STATUS Full code Disposition Spoke to both daughters over the phone few days ago and provided with updates We will get to a steps O2 saturation tomorrow and possible discharge tomorrow Admission and Anticipated Discharge Date Admission Date: March 13, 2021 Subjective 03/27/2021 The patient was seen and examined in telemetry unit and in the Covid room He has been feeling much better and is requiring up to 2 L of oxygen to maintain saturation He has been ambulating in the room without any difficulties Denies any other symptoms We will get a to a steps O2 saturation and likely discharge tomorrow Review of Systems Review of Systems: All systems reviewed and are unremarkable except as noted below Respiratory: No shortness of breath at rest Physical Exam Physical Exam: Lying in bed comfortably Constitutional: well developed, well nourished and + obese; not ill appearing Eyes: PERRL, conjunctivae normal, anicteric sclerae ENMT: external ear and nose normal, oropharynx normal Neck: trachea midline, no thyromegaly Respiratory: no respiratory distress and no cough Auscultation: + diminished lung sounds; no crackles and no wheezes Cardiovascular: Rate/Rhythm: regular rate and regular rhythm; not tachycardic Heart Sounds: normal S1 and normal S2; no murmur Extremities: no edema Gastrointestinal (Abdomen): Inspection/Auscultation: normal bowel sounds; abdomen not distended Percussion/Palpation: abdomen soft; abdomen nontender Musculoskeletal: No acute arthritis in any joint Neurologic: PERRL, EOMI, accommodation nl, no face palsy, no dysarthria Psychiatric: A+Ox3, euthymic affect Lymphatic: no cervical or axillary lymphadenopathy Results & Data Results & Data ([facility]) Vital Signs (Past 12 Hours) Vital Signs Temp Pulse Resp BP Pulse Ox 03/27/21 11:29 36.7 C 72 20 105/62 90 03/27/21 07:40 36.6 C 67 18 94/56 L 91 03/27/21 03:48 36.9 C 78 20 107/42 L 97 Laboratory Results Short CBC 03/27/21 Range/Units 06:04 WBC 14.25 H (4.8-10.8) K/uL Hgb 13.0 L (14.0-18.0) g/dL Hct 38.3 L (42-52) % Plt Count 310 (130-400) K/uL BMP 03/27/21 06:04 Sodium 134 L Potassium 4.8 Chloride 102 Carbon Dioxide 27 BUN 15 Creatinine 0.83 Glucose 84 Calcium 9.1 Liver Function 03/27/21 Range/Units 06:04 Total Bilirubin 0.4 (0.2-1) mg/dl AST 34 (15-37) U/L ALT 48 (12-78) U/L Alkaline Phosphatase 150 H (45-117) U/L Albumin 1.8 L (3.4-5.0) gm/dl Medications Administered Current Inpatient Medications Acetaminophen (Acetaminophen 325 Mg Tab) 650 mg PO Q4H PRN PRN Reason: Pain or Fever Stop: 04/12/21 17:05 Albuterol (Albut/Ipratrop 3mg/0.5mg Neb 3 Ml Vial) 3 ml NEB Q4R PRN PRN Reason: shortness of breath Stop: 04/12/21 17:05 Last Admin: 03/15/21 18:15 Dose: 3 ml Documented by: Aspirin (Aspirin 81 Mg Chew) 81 mg PO QAM [facility] Stop: 04/13/21 08:59 Last Admin: 03/27/21 08:26 Dose: 81 mg Documented by: Atorvastatin Calcium (Atorvastatin 40 Mg Tab) 40 mg PO QAM [facility] Stop: 04/13/21 08:59 Last Admin: 03/27/21 08:26 Dose: 40 mg Documented by: Enoxaparin Sodium (Enoxaparin Inj 40 Mg/0.4 Ml Syr) 40 mg SQ Q24H [facility] Stop: 04/12/21 17:59 Last Admin: 03/26/21 17:14 Dose: 40 mg Documented by: Melatonin (Melatonin 3 Mg Tab) 3 mg PO HS PRN PRN Reason: Sleep Stop: 04/16/21 17:02 Last Admin: 03/17/21 21:00 Dose: 3 mg Documented by: Metoprolol Tartrate (Metoprolol Tartrate 25 Mg Tab) 25 mg PO BID [facility] Stop: 04/12/21 20:59 Last Admin: 03/27/21 08:26 Dose: 25 mg Documented by: Pantoprazole Sodium (Pantoprazole 40 Mg Tab) 40 mg PO QAM [facility] Stop: 04/13/21 08:59 Last Admin: 03/27/21 08:27 Dose: 40 mg Documented by: Ticagrelor (Ticagrelor 90 Mg Tab) 90 mg PO BID [facility] Stop: 04/12/21 20:59 Last Admin: 03/25/21 15:10 Dose: Not Given Documented by: (1) C3 cervical fracture Encounter type: initial encounter Fracture alignment: displaced Fracture morphology: unspecified fracture morphology Fracture type: closed Qualified Code(s): S12.200A - Unspecified displaced fracture of third cervical vertebra, initial encounter for closed fracture
[2021-03-27] MEDS: ENOXAPARIN INJ 40 MG/0.4 ML SYR SQ SCH (17:18)
[2021-03-28] MEDS: PANTOprazole 40 MG TAB PO SCH (08:20)
[2021-03-28] MEDS: ATORVASTATIN 40 MG TAB PO SCH (08:20)
[2021-03-28] MEDS: METOPROLOL TARTRATE 25 MG TAB PO SCH (08:20)
[2021-03-28] MEDS: ASPIRIN 81 MG CHEW PO SCH (08:20)
--- NOTE | 2021-03-28 13:49 | Hospitalist Progress Note ---
Date of Service March 28, 2021 Assessment & Plan (1) Acute respiratory failure with hypoxia: (2) Pneumonia due to COVID-19 virus: Plan: Tested positive for COVID-19 CXR showed Interval development of bilateral opacities and progression of interstitial thickening consistent suggestive of viral pneumonia. CTA showed no pulmonary emboli identified. Extensive airspace opacities throughout the lungs with multifocal consolidation and groundglass opacities. Continue oxygen supplementation Continue incentive spirometry and flutter valve Received remdesivir and dexamethasone Previous hospitalist team discussed with Ophthalmic Dispenser Dr Vines who recommended increasing remaining doses of dexamethasone to 10mg and to add atypical coverage since his scans suggests possible COPD Baricitinib was discontinued to due elevated LFT. Encourage patient to continue to prone Continue oxygen supplement therapy to keep oxygen sat above 90 % Inflammatory markers trending down with ferritin 1485, CRP 9.75, but ESR remains above 130 Cumulative fluid balance is -10,000, will not give any more Lasix today Advised to ambulate in the room He has been feeling much better without any symptoms at rest He does not require any oxygen at rest 2 steps O2 saturation test showed that he will need up to 5 L of oxygen with ambulation He was warned against possible decompensation at home but he was adamant that he wants to go home and will take it easy at home He knew that his condition may get worse and he may need to return to the hospital for help (3) C3 cervical fracture: Plan: Patient had a syncopal episode and was seen in the ER on 03/09/2021. Was found to have a cervical fracture and was planned to follow-up with Ortho outpatient. Spine Ortho consult appreciated. Ortho recommended to continue to maintain cervical collar at all times. If patient requires intubation will need to be done with the glide scope or fiberoptic maintain cervical alignment and to maintain cervical collar if intubated Pt has been non complaint and refused to wear the cervical collar. Ortho Dr. Ferguson was notified Denies any more pain in the neck (4) CAD (coronary artery disease): Plan: Appears stable, no reports of chest pain Continue ASA, Brilinta, beta-ruby, statin Daughters requested cardiology consult because her dad had hx CAD even though reassuring her there is no additional cardiac testing needed Cardiology consulted No additional testing needed Continue outpatient medication No cardiac symptoms Elevated liver enzyme Baricitinib was discontinued Liver enzymes continue trending down If liver enzyme continues to trend, will hold on statin Continue monitor -LFTs have been normalized with minimal increase in alkaline phosphatase at 150 (5) DVT prophylaxis: Plan: SQ Lovenox CODE STATUS Full code Disposition Spoke to both daughters over the phone few days ago and provided with updates We will get to a 2 steps O2 saturation tomorrow and possible discharge tomorrow Has had 2 steps O2 saturation test and he will require 5 L of oxygen discharge Admission and Anticipated Discharge Date Admission Date: March 13, 2021 Subjective 03/27/2021 The patient was seen and examined in telemetry unit and in the Covid room He has been feeling much better and is requiring up to 2 L of oxygen to maintain saturation He has been ambulating in the room without any difficulties Denies any other symptoms We will get a to a steps O2 saturation and likely discharge tomorrow 03/28/2021 The patient was seen and examined in telemetry unit and in the Covid room He has been feeling a lot better and does not require any oxygen at rest Denies any more cough, palpitation or shortness of breath at rest He wants to go home today Review of Systems Review of Systems: All systems reviewed and are unremarkable except as noted below Respiratory: No respiratory distress at rest Physical Exam Physical Exam: Lying in bed comfortably Constitutional: well developed, well nourished and + obese; not ill appearing Eyes: PERRL, conjunctivae normal, anicteric sclerae ENMT: external ear and nose normal, oropharynx normal Neck: trachea midline, no thyromegaly Respiratory: no respiratory distress and no cough Auscultation: + diminished lung sounds; no crackles and no wheezes Cardiovascular: Rate/Rhythm: regular rate and regular rhythm; not tachycardic Heart Sounds: normal S1 and normal S2; no murmur Extremities: no edema Gastrointestinal (Abdomen): Inspection/Auscultation: normal bowel sounds; abdomen not distended Percussion/Palpation: abdomen soft; abdomen nontender Neurologic: PERRL, EOMI, accommodation nl, no face palsy, no dysarthria Psychiatric: A+Ox3, euthymic affect Lymphatic: no cervical or axillary lymphadenopathy Results & Data Results & Data ([facility]) Vital Signs (Past 12 Hours) Vital Signs Temp Pulse Pulse Pulse Pulse Pulse Pulse 03/28/21 11:45 36.7 C 61 03/28/21 08:00 79 75 78 75 79 03/28/21 07:13 36.8 C 73 03/28/21 03:16 36.9 C 66 Pulse Resp Resp Resp Resp Resp Resp 03/28/21 11:45 18 03/28/21 08:00 70 24 22 22 22 20 03/28/21 07:13 19 03/28/21 03:16 18 Resp BP Pulse Ox Pulse Ox Pulse Ox Pulse Ox Pulse Ox 03/28/21 11:45 102/50 L 94 03/28/21 08:00 18 85 L 86 L 88 L 89 L 03/28/21 07:13 105/49 L 93 03/28/21 03:16 102/57 L 95 Pulse Ox Pulse Ox 03/28/21 11:45 03/28/21 08:00 83 L 90 03/28/21 07:13 03/28/21 03:16 Medications Administered Current Inpatient Medications Acetaminophen (Acetaminophen 325 Mg Tab) 650 mg PO Q4H PRN PRN Reason: Pain or Fever Stop: 04/12/21 17:05 Albuterol (Albut/Ipratrop 3mg/0.5mg Neb 3 Ml Vial) 3 ml NEB Q4R PRN PRN Reason: shortness of breath Stop: 04/12/21 17:05 Last Admin: 03/15/21 18:15 Dose: 3 ml Documented by: Aspirin (Aspirin 81 Mg Chew) 81 mg PO QAM [facility] Stop: 04/13/21 08:59 Last Admin: 03/28/21 08:20 Dose: 81 mg Documented by: Atorvastatin Calcium (Atorvastatin 40 Mg Tab) 40 mg PO QAM [facility] Stop: 04/13/21 08:59 Last Admin: 03/28/21 08:20 Dose: 40 mg Documented by: Enoxaparin Sodium (Enoxaparin Inj 40 Mg/0.4 Ml Syr) 40 mg SQ Q24H [facility] Stop: 04/12/21 17:59 Last Admin: 03/27/21 17:18 Dose: 40 mg Documented by: Melatonin (Melatonin 3 Mg Tab) 3 mg PO HS PRN PRN Reason: Sleep Stop: 04/16/21 17:02 Last Admin: 03/17/21 21:00 Dose: 3 mg Documented by: Metoprolol Tartrate (Metoprolol Tartrate 25 Mg Tab) 25 mg PO BID [facility] Stop: 04/12/21 20:59 Last Admin: 03/28/21 08:20 Dose: 25 mg Documented by: Pantoprazole Sodium (Pantoprazole 40 Mg Tab) 40 mg PO QAM [facility] Stop: 04/13/21 08:59 Last Admin: 03/28/21 08:20 Dose: 40 mg Documented by: Ticagrelor (Ticagrelor 90 Mg Tab) 90 mg PO BID [facility] Stop: 04/12/21 20:59 Last Admin: 03/25/21 15:10 Dose: Not Given Documented by: (1) C3 cervical fracture Encounter type: initial encounter Fracture alignment: displaced Fracture morphology: unspecified fracture morphology Fracture type: closed Qualified Code(s): S12.200A - Unspecified displaced fracture of third cervical vertebra, initial encounter for closed fracture
--- NOTE | 2021-03-29 08:13 | Discharge Summary ---
Date of Service March 29, 2021 Admission HPI Per Admitting Provider 60-year-old male with PMH CAD s/p NSTEMI with IVONNE to distal left circumflex 2017, HTN, history of tobacco use, and other problems listed below who presents to the ED with reports of worsening shortness of breath. Patient diagnosed with COVID-19 at an outside facility approximately 1 week ago. Patient reports developing shortness of breath and cough about 10 days ago. Patient was seen at [facility] ED on 03/09 after syncopal event. Patient was diagnosed with an acute minimally distracted avulsion fracture of the anterior inferior C3 vertebral body, favoring a teardrop fracture. Nonoperative management with [place] J collar and outpatient follow-up with spine Ortho was recommended. Patient reports worsening shortness of breath over the past few days. He has a pulse oximeter at home and reported his oxygen to be 72% on room air. Patient presented to the ED for further evaluation. He reports cough is minimally productive for green sputum. Reports running some low-grade fevers. Appetite remains good, denies abdominal pain, nausea, vomiting, diarrhea. No further episodes of lightheadedness, dizziness, syncope. He denies chest pain. No urinary symptoms. In the ED, patient was requiring 6 L of oxygen via nasal cannula to maintain saturations. CXR shows bilateral opacities suggestive of viral pneumonia. Patient was given nebulizer treatment, IV dexamethasone 6 mg, IVF. Admission Exam Per Admitting Provider Constitutional: WD/WN, vitals as above Eyes: PERRL, conjunctivae normal, anicteric sclerae Right periorbital ecchymosis with small abrasion ENMT: external ear and nose normal, oropharynx normal Neck: [place] J collar in place Respiratory: normal respiratory effort; no respiratory distress Auscultation: + diminished lung sounds Cardiovascular: Rate/Rhythm: regular rate and regular rhythm Vessels: normal peripheral pulses Extremities: no edema Gastrointestinal (Abdomen): normal bowel sounds, soft, nontender, no hepatosplenomegaly Musculoskeletal: no cyanosis or clubbing, extremities motor strength 5/5 Skin: no rashes, warm and dry Neurologic: PERRL, EOMI, accommodation nl, no face palsy, no dysarthria Psychiatric: A+Ox3, euthymic affect Principal Diagnosis Acute respiratory failure with hypoxia, pneumonia due to COVID-19 virus, CAD, stable C3 cervical fracture Discharge Exam Lying in bed comfortably Constitutional well developed, well nourished and + obese; not ill appearing Eyes PERRL, conjunctivae normal, anicteric sclerae ENMT external ear and nose normal, oropharynx normal Neck trachea midline, no thyromegaly Respiratory no respiratory distress and no cough Auscultation: + diminished lung sounds; no crackles and no wheezes Cardiovascular Rate/Rhythm: regular rate and regular rhythm; not tachycardic Heart Sounds: normal S1 and normal S2; no murmur Extremities: no edema Gastrointestinal (Abdomen) Inspection/Auscultation: normal bowel sounds; abdomen not distended Percussion/Palpation: abdomen soft; abdomen nontender Neurologic PERRL, EOMI, accommodation nl, no face palsy, no dysarthria Psychiatric A+Ox3, euthymic affect Lymphatic no cervical or axillary lymphadenopathy Discharge Data Allergies Allergy/AdvReac Type Severity Reaction Status Date / Time No Known Allergies Allergy Verified 03/13/21 14:27 Consultations 03/13/21 15:53 ED Decision to Admit Stat 03/13/21 17:31 Consult Pulmonology Routine 03/13/21 17:38 Consult Orthopedic Surgery Routine 03/21/21 18:14 Consult Cardiology Routine Ordered Studies 03/13/21 15:52 CT angio chest PE protocol Urgent Hospital Course (1) Acute respiratory failure with hypoxia: (2) Pneumonia due to COVID-19 virus: Tested positive for COVID-19 CXR showed Interval development of bilateral opacities and progression of interstitial thickening consistent suggestive of viral pneumonia. CTA showed no pulmonary emboli identified. Extensive airspace opacities throughout the lungs with multifocal consolidation and groundglass opacities. Continue oxygen supplementation Continue incentive spirometry and flutter valve Received remdesivir and dexamethasone Previous hospitalist team discussed with Lunchroom Monitor Dr Vines who recommended increasing remaining doses of dexamethasone to 10mg and to add atypical coverage since his scans suggests possible COPD Baricitinib was discontinued to due elevated LFT. Encourage patient to continue to prone Continue oxygen supplement therapy to keep oxygen sat above 90 % Inflammatory markers trending down with ferritin 1485, CRP 9.75, but ESR remains above 130 Cumulative fluid balance is -10,000, will not give any more Lasix today Advised to ambulate in the room He has been feeling much better without any symptoms at rest He does not require any oxygen at rest 2 steps O2 saturation test showed that he will need up to 5 L of oxygen with ambulation He was warned against possible decompensation at home but he was adamant that he wants to go home and will take it easy at home He knew that his condition may get worse and he may need to return to the hospital for help (3) C3 cervical fracture: Patient had a syncopal episode and was seen in the ER on 03/09/2021. Was found to have a cervical fracture and was planned to follow-up with Ortho outpatient. Spine Ortho consult appreciated. Ortho recommended to continue to maintain cervical collar at all times. If patient requires intubation will need to be done with the glide scope or fiberoptic maintain cervical alignment and to maintain cervical collar if intubated Pt has been non complaint and refused to wear the cervical collar. Ortho Dr. Ferguson was notified Denies any more pain in the neck (4) CAD (coronary artery disease): Appears stable, no reports of chest pain Continue ASA, Brilinta, beta-ruby, statin Daughters requested cardiology consult because her dad had hx CAD even though reassuring her there is no additional cardiac testing needed Cardiology consulted No additional testing needed Continue outpatient medication No cardiac symptoms Elevated liver enzyme Baricitinib was discontinued Liver enzymes continue trending down If liver enzyme continues to trend, will hold on statin Continue monitor -LFTs have been normalized with minimal increase in alkaline phosphatase at 150 (5) DVT prophylaxis: SQ Lovenox CODE STATUS Full code Disposition Spoke to both daughters over the phone few days ago and provided with updates We will get to a 2 steps O2 saturation tomorrow and possible discharge tomorrow Has had 2 steps O2 saturation test and he will require 5 L of oxygen discharge Total Time Total Time Spent Total Time Spent (In Minutes): 35 minutes Discharge Plan Discharge Items Patient Disposition: Home - Self-Care Reason For Visit: COVID PNEUMONIA Discharge Diagnosis: Acute respiratory failure with hypoxia, pneumonia due to COVID-19 virus, CAD, stable C3 cervical fracture Condition on Discharge: Fair Activity: Resume your previous activity Non-emergency contact: Primary Care Provider Call non-emergency contact if: your pain is concerning for you and you have a fever Follow-up/Referrals: Morgan Rubin PA-C [Primary Care Provider] - 04/04/21 11:00 am (Your appointment is with Dr. Humble Andrew) Diet: Heart Healthy Addtl Attending Provider Instructions: Please take extra precaution to avoid falls Use your oxygen as advised Please keep your self in isolation for the next 5 days as per the guidelines below. Take it easy for the next week or so Keep appointment with your primary care provider Pending Studies at Discharge: No Stand-Alone Forms: My [facility], Smoking Cessation Medications and DC Order Prescriptions: Continued metoprolol tartrate 25 mg tablet 25 mg PO BID Qty: 180 RF: 3 atorvastatin 40 mg tablet 40 mg PO QAM RF: 0 omeprazole 20 mg capsule,delayed release(DR/EC) 20 mg PO QAM RF: 0 nitroglycerin [Nitrostat] 0.4 mg tablet, sublingual 0.4 mg Sublingual Q5M Qty: 25 RF: 1 acetaminophen [Tylenol Extra Strength] 500 mg tablet 1,000 mg PO Q6H MDD 6 pills a day PRN (Reason: pain) Qty: 60 RF: 0 Brilinta 90 mg tablet 90 mg PO BID RF: 0 aspirin 81 mg tablet,chewable 81 mg PO QAM RF: 0 diclofenac sodium 75 mg Tablet,Delayed Release (Dr/Ec) 75 mg PO BID RF: 0 Discharge Orders: Discharge Order (Routine); Ordered 03/28/21 Ordered By: Sherri Carmichael Admission Data Admit Date/Time: 03/13/21 16:00 Attending Provider: Sherri Carmichael Admit Provider: Maris Ferrell I. Primary Care Provider: Morgan Rubin Other Providers: Maris Ferrell I. ; Augustine Louis ; Zev Ferguson ; Manny Pretty ; Jimmie Hanks Other Interventions: Discharge Summary Assessment (RN) Last Done: 03/28/21 17:20
== END 2021-03-28 17:31 | disposition home or self-care (01) | DRG 177 ==
LOC: ED 12:49 → 2E 16:00 → SUATTDRO 16:00 → 2E 16:26